=== PATIENT | female | born 1945 | race Caucasian/White ===

== ENCOUNTER 2018-07-10 00:12 | Inpatient (IN) | payer MEDICARE ==
[~2018-07-10] VITALS: Ht 157.5 cm; Wt 60.0 kg
[2018-07-10] VITALS (19 sets, daily range): BP systolic 75–141; BP diastolic 51–91
[~2018-07-10 00:12] MED LIST: ACET325T55 PO; BENZ1TAB7 PO; CALC3.7S3 NAS; DIGO125T PO; DOCU100C41 PO; DONE5TAB3 PO; ENOX40DI11 SUBCUT; FLUT16SP2 BOTHNARES; HYDR-4353 PO; IPRA3AMP9 IH; LEVO750T46 PO; MAGN400O6 PO; MAGN64TA10 PO; METF-436 PO; METH125V10 IV; MULT-38 PO; OMEP20CA10 PO; POTA-82 PO; SENN-162 PO; SERT100T10 PO; TEMA15CA PO; [UNRECOGNIZED DRUG - CODE] TOP
[2018-07-10 01:49] LABS: ALANINE AMINOTRANSFERASE 23 U/L (12-78); ALBUMIN 3.9 G/DL (3.4-5.0); ALBUMIN/GLOBULIN RATIO 1.1 (1.1-1.5); ALKALINE PHOSPHATASE 92 IU/L (46-116); ANION GAP 11 (8-16); ASPARTATE AMINO TRANSFERASE 23 U/L (10-37); BILIRUBIN,TOTAL 0.5 MG/DL (0.1-1.0); BLOOD UREA NITROGEN 20 MG/DL (7-18); BUN/CREATININE RATIO 33.3 (6.6-38.0); CALCIUM 9.6 MG/DL (8.5-10.1); CHLORIDE 98 MMOL/L (99-107); GLUCOSE 181 MG/DL (70-104); POTASSIUM 4.1 MMOL/L (3.5-5.1); SODIUM 138 MMOL/L (135-145); TOTAL CARBON DIOXIDE 29.3 MMOL/L (24-32); TOTAL PROTEIN 7.4 G/DL (6.4-8.2); eGFR > 90 ML/MIN
[2018-07-10 02:20] LABS: BASOPHILS % (AUTO) 0 % (0-1); EOSINOPHILS # (AUTO) 0.1 X10'3 (0-0.9); EOSINOPHILS % (AUTO) 0.9 % (0-6); HEMOGLOBIN 16.2 g/dl (12.0-16.0); LYMPHOCYTES # (AUTO) 0.3 X10'3 (1.1-4.8); LYMPHOCYTES % (AUTO) 6.2 % (21-51); MEAN CORPUSCULAR HEMOGLOBIN 31.9 PG (27.0-31.0); MEAN CORPUSCULAR HGB CONC 33.7 % (33.0-36.5); MEAN CORPUSCULAR VOLUME 94.6 FL (78-98); MEAN PLATELET VOLUME 7.9 FL (7.4-10.4); MONOCYTES # (AUTO) 0.2 X10'3 (0-0.9); MONOCYTES % (AUTO) 3.3 % (2-12); NEUTROPHILS % (AUTO) 89.6 % (42-75); PLATELET COUNT 134 X10'3 (140-440); RED BLOOD COUNT 5.08 X10'6 (4.20-5.60); RED CELL DISTRIBUTION WIDTH 14.8 % (11.5-14.5); WHITE BLOOD COUNT 5.6 X10'3 (4.5-11.0)
[2018-07-10 02:33] LABS: PROTHROMBIN TIME 10.3 SECONDS (9.0-12.0)
[2018-07-10] MEDS ORDERED: ondansetron/PF 4mg/2ml inj IV ONE (02:55)
[2018-07-10] MEDS ORDERED: morphine 2 MG/ML inj. syringe IV PRN (02:55)
[2018-07-10] MEDS: morphine 4 MG/ML inj SYRINge IV PRN ×2 (03:00→03:33)
[2018-07-10] MEDS ORDERED: iohexol 300mg/ml 100ml inj. ONE (03:02)
[2018-07-10 03:09] LABS: LIPASE 205 U/L (73-393); MAGNESIUM 1.5 MG/DL (1.5-2.4)
--- NOTE | 2018-07-10 04:08 | NUR ---
No bleed in colostomy bag noted prior to ED MD exam. Upon inspection of bag, the primary nurse and Doctor Dakota visualized GI bleed being excreted from the ostomy. Dr. Duncan ordered a type and screen and consulted with the hospitalist
[2018-07-10] MEDS ORDERED: morphine 4 MG/ML inj SYRINge IV PRN (04:10)
[2018-07-10] MEDS ORDERED: acetaminophen 650mg rectal suppository RC PRN (04:10)
[2018-07-10] MEDS ORDERED: diphenhydrAMINE 50 mg/ml inj IV PRN (04:10)
[2018-07-10] MEDS ORDERED: HYDROmorphone 1 mg/ml syringe IV PRN (04:10)
[2018-07-10] MEDS ORDERED: magnesium hydroxide 30ml (MOM) UD suspension PO PRN (04:10)
[2018-07-10] MEDS ORDERED: bisacodyl 10mg suppository rectal RC PRN (04:10)
[2018-07-10] MEDS ORDERED: mag hydrox/Alum hydrox/simeth 30ml oral suspension PO PRN (04:10)
[2018-07-10] MEDS ORDERED: acetaminophen 325mg tablet PO PRN ×2 (04:10)
[2018-07-10] MEDS ORDERED: diphenhydrAMINE 25mg capsule PO PRN (04:10)
[2018-07-10] MEDS ORDERED: ondansetron/PF 4mg/2ml inj IV PRN ×2 (04:10→06:35)
[2018-07-10] MEDS ORDERED: MESSAGE TO PHARMACY PO ONE (04:15)
[2018-07-10] MEDS ORDERED: insulin Lispro (HumaLOG) vial - multi-dose SQ SCH (04:15)
[2018-07-10] MEDS ORDERED: dextrose 50%-water 50ml dispensing syringe IV PRN (04:15)
[2018-07-10] MEDS ORDERED: dextrose ORAL solution 15 GM/59 ML bottle PO PRN ×2 (04:15)
[2018-07-10] MEDS ORDERED: glucagon, human recombinant 1mg kit SUBCUT PRN (04:15)
[2018-07-10 04:38] LABS: PHOSPHORUS 3.1 MG/DL (2.3-4.5); TROPONIN I < 0.04 NG/ML (0.0-0.05)
[2018-07-10 04:44] LABS: HEMOGLOBIN A1C 5.8 % (4.5-6.2)
[2018-07-10] MEDS ORDERED: piperacillin/tazo 3.375gm/50ml 50 ML IV ONE (04:50)
--- NOTE | 2018-07-10 05:00 | NUR ---
ADMITTED FROM ER BROUGHT VIA GURNEY TRANSFERRED TO BED. PT VERY SOB ON MASK, PAINFULL NAUSEATED,. ORIENTEDF TO ROOM AND ROUTINE. RT OSKAR, Addendum: 07/10/18 at 0609 by Alexander Blum RN Amended: Links added.
[2018-07-10 05:30] LABS: ABG BASE EXCESS 4.2 mmol/L (-2.0-3.0); ABG HCO3 30.9 mmol/L (22.0-26.0); ABG OXYGEN SATURATION 91.2 % (95-98); ABG PCO2 (T) 52.8 mmHg (32.0-45.0); ABG PH (T) 7.385 (7.350-7.450); ABG PO2 (T) 60.2 mmHg (83-108); ALLEN'S TEST Positive; FCOHb 1.2 % (0.5-1.5); FLOW 15 L/min; FMetHb 0.3 % (0.3-1.12); FO2Hb 89.8 % (94-100); PATIENT TEMPERATURE 36.9; TOTAL HEMOGLOBIN 17.8 G/dl (12.0-16.0)
[2018-07-10] MEDS: normal saline 1000ml 1,000 ML IV SCH ×2 (05:33→14:41)
--- NOTE | 2018-07-10 06:25 | NUR ---
Problems reprioritized. Patient report given, questions answered & plan of care reviewed with CITLALI MOBLEY. Addendum: 07/10/18 at 0706 by Alexander Blum RN Amended: Links added.
[2018-07-10] MEDS ORDERED: ringers solution, lacted 1,000 ML IV SCH (06:35)
--- NOTE | 2018-07-10 06:40 | NUR ---
Patient in room [facility]. I have received report from Elise GODWIN and had the opportunity to ask questions and assume patient care.
[2018-07-10] MEDS ORDERED: LIDOcaine 1% 30ml preserv. free vial ONE (06:56)
[2018-07-10] MEDS ORDERED: BUPIVAcaine/PF 2.5mg/ml (0.25%) 10ml vial ONE (06:56)
[2018-07-10] MEDS ORDERED: LIDOcaine 1% (10mg/ml) 2ml vial ONE (06:57)
--- NOTE | 2018-07-10 07:18 | NUR ---
Dr Ogden in to see patient at bedside. Patient will be going to OR STAT. Son, Mack, reached on phone and talked with Dr. Ogden, going forward with surgery. Patient report given to OR Charlene GODWIN, patient is now off the floor to OR. Rings are taped x2 on right hand, unable to remove. All belongings taken to OR with patient.
[2018-07-10] MEDS ORDERED: sevoflurane 250ml liquid IH ONE ×3 (07:25→13:08)
[2018-07-10] MEDS ORDERED: MIDAZolam 5mg/5ml vial ONE (07:32)
[2018-07-10] MEDS ORDERED: fentaNYL /PF 50mcg/ml 5ml ampule ONE (07:33)
[2018-07-10] MEDS ORDERED: etomidate 2mg/ml inj. ONE (07:35)
[2018-07-10] MEDS ORDERED: rocuronium 10mg/ml inj IV ONE (07:35)
[2018-07-10] MEDS: docusate sod 100mg capsule PO SCH ×2 (08:00→20:00)
[2018-07-10] MEDS ORDERED: phenylephrine 10mg/ml inj. ONE (08:34)
--- NOTE | 2018-07-10 09:50 | NUR ---
Pt arrived from OR.
--- NOTE | 2018-07-10 09:50 | NUR ---
Received from OR via , accompanied by HANNAH HUDSON, Anesthesiologist and report given by Anesthesiolgist. S/P EXP. LAP,BOWEL RESECTION PER DR. PONCE. PT. ARRIVES TO CICU 2014. INTUBATED, VENTILATOR, RT. PRESENT. PT. REMAINS SEDATED. ABD. WOUND VAC IN PLACE, GOOD SEAL, SERO SANG DRANINAGE PRESENT. COLOSTOMY STOMAL LT. ABD, BAG IN PLACE, NO DRAINAGE. PADILLA TO GRAVITY W/ CL. URINE PRESENT. RT. AC IV PATENT. LT. NECK CVP IN PLACE. RT. RADIAL ART. LINE PATERN W/ GOOD WAVE FORM.
[2018-07-10 10:05] LABS: ABG BASE EXCESS -5.3 mmol/L (-2.0-3.0); ABG HCO3 24.4 mmol/L (22.0-26.0); ABG OXYGEN SATURATION 90.7 % (95-98); ABG PCO2 (T) 64.9 mmHg (32.0-45.0); ABG PH (T) 7.193 (7.350-7.450); ABG PO2 (T) 69.3 mmHg (83-108); FCOHb 0.5 % (0.5-1.5); FMetHb 0.3 % (0.3-1.12); MINUTE VOLUME 14 L/min; PEEP 5 cm H2O; RESPIRATORY RATE 10 b/min; RESPIRATORY RATE (OBSERVED) 31 b/min; TIDAL VOLUME 500 mL; TOTAL HEMOGLOBIN 16.6 G/dl (12.0-16.0)
[2018-07-10] MEDS: FENTANYL-0.9 % NACL/PF 100 ML IV PRN ×4 (10:17→22:58)
--- NOTE | 2018-07-10 10:25 | NUR ---
Report called to receiving nurse, CITLALI MALIK . Transferred via Belongings W/ PT. . Special Issues communicated to receiving nurse.PT. REMAINS SEDATED (FENTANYL GTT PER ORDER). ON VENTILATOR AT ORIGINAL SETTINGS. ABD. WOUND VAC IN PLACE W/ GOOD SEAL PRESENT. LT. ABD. STOMA TO BAG, NO DRAINAGE. PADILLA TO GRAVITY W/ YELLOW URINE. RT. AC IV PATENT. LT. NECK CVP INTACT. LT. RADIAL ART LINE INTACT. SALEM SUMP TO LOW SUCTION W/ SM. AMT. DARK BROWN FLUID PRESENT.
[2018-07-10] MEDS ORDERED: albumin (human) 25% 100ml IV 100 ML IV ONE (11:40)
[2018-07-10] MEDS: dexmedetomidin/NS 400mcg/100ml 100 ML IV SCH (12:14)
[2018-07-10 13:00] LABS: ABG BASE EXCESS 0.7 mmol/L (-2.0-3.0); ABG HCO3 27.2 mmol/L (22.0-26.0); ABG OXYGEN SATURATION 96.8 % (95-98); ABG PCO2 (T) 50.8 mmHg (32.0-45.0); ABG PH (T) 7.347 (7.350-7.450); ABG PO2 (T) 90.2 mmHg (83-108); FMetHb 0.2 % (0.3-1.12); FO2Hb 95.6 % (94-100); MINUTE VOLUME 11 L/min; PEEP 5 cm H2O; RESPIRATORY RATE 14 b/min; RESPIRATORY RATE (OBSERVED) 25 b/min; TIDAL VOLUME 500 mL; TOTAL HEMOGLOBIN 15.5 G/dl (12.0-16.0)
[2018-07-10] MEDS ORDERED: normal saline 500ml IV soln 1,000 ML IV ONE (13:05)
[2018-07-10] MEDS: methylPREDNISolone sod succ 125mg/2ml vial IV SCH ×2 (13:47→20:33)
[2018-07-10] MEDS: levoFLOXACIN-Levaquin 250mg/D5 50 ML IV SCH (13:47)
[2018-07-10] MEDS: pantoprazole 40 MG vial IV SCH ×2 (13:47→20:33)
[2018-07-10] MEDS: NORepinephrine 8mg/ 250ml NS 250 ML IV SCH ×2 (13:48→21:24)
[2018-07-10] MEDS: piperacillin-tazo 2.25gm/50ml 50 ML IV SCH (14:41)
[2018-07-10] MEDS: ipratropium/albuterol 3ml nebule NEB SCH ×2 (15:05→20:51)
[2018-07-10 17:00] LABS: OXYGEN SATURATION (MIXED VEN) 74.2 % (60-80); PO2 MIXED VENOUS (TEMP COR) 37.4 mmHg (35-46)
--- NOTE | 2018-07-10 17:56 | NUR ---
Two rings removed from pt's right hand and sent home with pt's son Mack Yates
--- NOTE | 2018-07-10 18:25 | NUR ---
Problems reprioritized. Patient report given, questions answered & plan of care reviewed.
--- NOTE | 2018-07-10 18:30 | NUR ---
Patient in room CICU 2014. I have received report from Andrea GODWIN and had the opportunity to ask questions and assume patient care.
[2018-07-10] MEDS: heparin, porcine 5000 units/ml vial SQ SCH (20:00)
--- NOTE | 2018-07-10 20:15 | NUR ---
pt is extremely agitated pulling at restraints, the slightest touch completely agitates her, patient is grimacing in pain and fighting the vent, patient is on 150mcg fentanyl gtt and Precedex at max 0.7mcg, tt Shana, about further orders to make the patient more comfortable, stated to go up to 200mcg on fentanyl and titrate levo to maintain map, and add versed for sedation. will enter verbal orders, vital signs stable will continue to monitor
[2018-07-10] MEDS: vancomycin/NS 1 GM ADD-VANTAGE 250 ML IV SCH (20:34)
--- NOTE | 2018-07-10 20:45 | NUR ---
patient resting more comfortably, still easily agitated and painful with any touch or movement. will continue to titrate meds as ordered to make patient comfortable
[2018-07-10] MEDS: midazolam 100mg in NS 100ml 100 ML IV PRN (20:53)
[2018-07-10] MEDS ORDERED: temazepam 15mg capsule PO PRN (21:00)
[2018-07-11] VITALS (24 sets, daily range): BP systolic 90–141; BP diastolic 51–70
[2018-07-11] MEDS: piperacillin-tazo 2.25gm/50ml 50 ML IV SCH ×3 (00:44→16:41)
[2018-07-11] MEDS: dexmedetomidin/NS 400mcg/100ml 100 ML IV SCH ×2 (00:44→14:13)
[2018-07-11 03:00] LABS: BASOPHILS % (AUTO) 0 % (0-1); EOSINOPHILS % (AUTO) 0 % (0-6); HEMOGLOBIN 13.3 g/dl (12.0-16.0); LYMPHOCYTES # (AUTO) 0.8 X10'3 (1.1-4.8); LYMPHOCYTES % (AUTO) 5.7 % (21-51); MEAN CORPUSCULAR HEMOGLOBIN 31.5 PG (27.0-31.0); MEAN CORPUSCULAR HGB CONC 33.2 % (33.0-36.5); MEAN CORPUSCULAR VOLUME 94.9 FL (78-98); MEAN PLATELET VOLUME 8.5 FL (7.4-10.4); MONOCYTES # (AUTO) 1.2 X10'3 (0-0.9); MONOCYTES % (AUTO) 8.5 % (2-12); NEUTROPHILS # (AUTO) 11.7 X10'3 (1.8-7.7); NEUTROPHILS % (AUTO) 85.8 % (42-75); PLATELET COUNT 137 X10'3 (140-440); RED BLOOD COUNT 4.22 X10'6 (4.20-5.60); RED CELL DISTRIBUTION WIDTH 14.9 % (11.5-14.5); WHITE BLOOD COUNT 13.6 X10'3 (4.5-11.0)
[2018-07-11] MEDS: ipratropium/albuterol 3ml nebule NEB SCH ×4 (03:26→21:16)
[2018-07-11] MEDS: normal saline 1000ml 1,000 ML IV SCH ×3 (03:29→20:09)
[2018-07-11 03:40] LABS: ABG BASE EXCESS -2.4 mmol/L (-2.0-3.0); ABG HCO3 21.9 mmol/L (22.0-26.0); ABG OXYGEN SATURATION 97.5 % (95-98); ABG PCO2 (T) 36.5 mmHg (32.0-45.0); ABG PH (T) 7.396 (7.350-7.450); ABG PO2 (T) 94.9 mmHg (83-108); FCOHb 0.4 % (0.5-1.5); FMetHb 0.2 % (0.3-1.12); FO2Hb 96.9 % (94-100); MINUTE VOLUME 9 L/min; PEEP 5 cm H2O; RESPIRATORY RATE 14 b/min; RESPIRATORY RATE (OBSERVED) 18 b/min; TIDAL VOLUME 500 mL; TOTAL HEMOGLOBIN 13.3 G/dl (12.0-16.0)
[2018-07-11 03:45] LABS: ALANINE AMINOTRANSFERASE 19 U/L (12-78); ALBUMIN 2.7 G/DL (3.4-5.0); ALKALINE PHOSPHATASE 35 IU/L (46-116); ANION GAP 10 (8-16); ASPARTATE AMINO TRANSFERASE 24 U/L (10-37); BILIRUBIN,TOTAL 0.8 MG/DL (0.1-1.0); BLOOD UREA NITROGEN 24 MG/DL (7-18); BUN/CREATININE RATIO 30.8 (6.6-38.0); CALCIUM 7.6 MG/DL (8.5-10.1); CHLORIDE 106 MMOL/L (99-107); CREATININE 0.78 MG/DL (0.40-0.90); GLUCOSE 155 MG/DL (70-104); POTASSIUM 3.8 MMOL/L (3.5-5.1); SODIUM 141 MMOL/L (135-145); TOTAL CARBON DIOXIDE 25.1 MMOL/L (24-32); TOTAL PROTEIN 5.4 G/DL (6.4-8.2); eGFR 72 ML/MIN
[2018-07-11] MEDS: NORepinephrine 8mg/ 250ml NS 250 ML IV SCH (05:47)
--- NOTE | 2018-07-11 06:16 | NUR ---
Problems reprioritized. Patient report given, Andrea GODWIN questions answered & plan of care reviewed with .
[2018-07-11] MEDS: FENTANYL-0.9 % NACL/PF 100 ML IV PRN ×3 (07:04→21:35)
[2018-07-11] MEDS: pantoprazole 40 MG vial IV SCH ×2 (07:10→20:00)
[2018-07-11] MEDS: methylPREDNISolone sod succ 125mg/2ml vial IV SCH (07:10)
[2018-07-11] MEDS: docusate sod 100mg capsule PO SCH ×2 (07:11→20:00)
[2018-07-11] MEDS: heparin, porcine 5000 units/ml vial SQ SCH ×2 (07:11→20:00)
[2018-07-11] MEDS: levoFLOXACIN-Levaquin 250mg/D5 50 ML IV SCH (07:47)
[2018-07-11] MEDS: vancomycin/NS 1 GM ADD-VANTAGE 250 ML IV SCH (08:37)
[2018-07-11] MEDS: fluconazole-Diflucan 200mg/NS 100 ML IV SCH (10:45)
--- NOTE | 2018-07-11 12:03 | NUR ---
Called pt's spouse, son, and rest of individuals on contact list in attempt to obtain consent for Lumbar Puncture. Was unable to reach anyone on contact list and voice mailboxes were full or not set up for messages.
--- NOTE | 2018-07-11 12:21 | NUR ---
Spoke with Clinical Microbiologist, she stated that she would be unable to culture fluid from wound vac container due to contamination issues. Culture will have to be collected directly from wound when wound vac broken down.
[2018-07-11] MEDS: methylnaltrexone br 12mg/0.6ml inj***SubQ only SQ SCH (13:15)
[2018-07-11] MEDS: midazolam 100mg in NS 100ml 100 ML IV PRN (13:19)
--- NOTE | 2018-07-11 13:27 | NUR ---
Initial: Pt admitted with SBO. Pt intubated and bowel resection was attempted with findings of perforated small bowel due to a strangulated, parastomal hernia and abdomen was left open per MD notes. Pt remains intubated and in surgery for resection and wound VAC placement to abdomen. If prolonged intubation and working gut, recommend continuous TF of Vital high protein with goal rate of 50 mL/hr to meet 100% of patient's estimated nutrient needs. Will continue to follow. Recommendations: 1) If prolonged intubation recommend continuous TF of Vital high protein with goal rate of 50 mL/hr 2) If above daily wt and prealbumin q / 3) Diet advancement to heart healthy as medically indicated Addendum: 07/11/18 at [address] Amended: Links added.
--- NOTE | 2018-07-11 14:22 | NUR ---
Spoke to Dr. Adams regarding wound fluid culture and requested to hold Realistor until after pt is closed.Received order to hold Realistor.
--- NOTE | 2018-07-11 18:23 | NUR ---
Problems reprioritized. Patient report given, questions answered & plan of care reviewed with . CITLALI Leon
--- NOTE | 2018-07-11 18:30 | NUR ---
Patient in room CICU 2014. I have received report from Andrea GODWIN and had the opportunity to ask questions and assume patient care.
[2018-07-11] MEDS ORDERED: hydrocortisone sod succ/PF 100mg/2ml inj. IV SCH (20:00)
[2018-07-11] MEDS: lactobacillus rhamnosus 10,000 MMU CELLS/CAPSULE PO SCH (20:00)
[2018-07-11] MEDS: vancomycin inj. 750 MG in normal saline 250ml IV soln 250 ML IV SCH (20:00)
[2018-07-12] VITALS (24 sets, daily range): BP systolic 80–154; BP diastolic 40–83
[2018-07-12] MEDS: hydrocortisone sod succ/PF 100mg/2ml inj. IV SCH ×4 (00:22→23:52)
[2018-07-12] MEDS: piperacillin-tazo 2.25gm/50ml 50 ML IV SCH ×3 (00:22→17:41)
[2018-07-12] MEDS: dexmedetomidin/NS 400mcg/100ml 100 ML IV SCH ×2 (01:14→16:23)
[2018-07-12] MEDS: midazolam 100mg in NS 100ml 100 ML IV PRN ×3 (01:15→21:59)
[2018-07-12] MEDS ORDERED: mineral oil/petrolatum ophthal oint EACHEYE PRN (02:00)
[2018-07-12] MEDS: NORepinephrine 8mg/ 250ml NS 250 ML IV SCH (02:59)
[2018-07-12] MEDS: ipratropium/albuterol 3ml nebule NEB SCH ×4 (03:15→21:15)
[2018-07-12 04:39] LABS: BASOPHILS % (AUTO) 0 % (0-1); EOSINOPHILS % (AUTO) 0.2 % (0-6); HEMATOCRIT 32.3 % (35.0-45.0); HEMOGLOBIN 10.8 g/dl (12.0-16.0); LYMPHOCYTES # (AUTO) 0.2 X10'3 (1.1-4.8); LYMPHOCYTES % (AUTO) 4.9 % (21-51); MEAN CORPUSCULAR HEMOGLOBIN 31.4 PG (27.0-31.0); MEAN CORPUSCULAR HGB CONC 33.3 % (33.0-36.5); MEAN CORPUSCULAR VOLUME 94.1 FL (78-98); MEAN PLATELET VOLUME 8.1 FL (7.4-10.4); MONOCYTES # (AUTO) 0.3 X10'3 (0-0.9); MONOCYTES % (AUTO) 5.6 % (2-12); NEUTROPHILS # (AUTO) 4.5 X10'3 (1.8-7.7); NEUTROPHILS % (AUTO) 89.3 % (42-75); PLATELET COUNT 90 X10'3 (140-440); RED BLOOD COUNT 3.43 X10'6 (4.20-5.60); RED CELL DISTRIBUTION WIDTH 15.4 % (11.5-14.5); WHITE BLOOD COUNT 5.1 X10'3 (4.5-11.0)
[2018-07-12] MEDS: FENTANYL-0.9 % NACL/PF 100 ML IV PRN ×3 (04:40→18:39)
[2018-07-12 04:46] LABS: ABG HCO3 22.8 mmol/L (22.0-26.0); ABG OXYGEN SATURATION 96.9 % (95-98); ABG PCO2 (T) 33.3 mmHg (32.0-45.0); ABG PH (T) 7.449 (7.350-7.450); ABG PO2 (T) 84.5 mmHg (83-108); FCOHb 0.3 % (0.5-1.5); FMetHb 0.2 % (0.3-1.12); FO2Hb 96.4 % (94-100); MINUTE VOLUME 10 L/min; PEEP 5 cm H2O; RESPIRATORY RATE 14 b/min; RESPIRATORY RATE (OBSERVED) 18 b/min; TIDAL VOLUME 500 mL; TOTAL HEMOGLOBIN 11.8 G/dl (12.0-16.0)
[2018-07-12 05:07] LABS: ALANINE AMINOTRANSFERASE 17 U/L (12-78); ALBUMIN/GLOBULIN RATIO 0.7 (1.1-1.5); ALKALINE PHOSPHATASE 42 IU/L (46-116); ANION GAP 11 (8-16); ASPARTATE AMINO TRANSFERASE 16 U/L (10-37); BILIRUBIN,TOTAL 0.6 MG/DL (0.1-1.0); BLOOD UREA NITROGEN 20 MG/DL (7-18); BUN/CREATININE RATIO 31.3 (6.6-38.0); CALCIUM 7.3 MG/DL (8.5-10.1); CHLORIDE 109 MMOL/L (99-107); CREATININE 0.64 MG/DL (0.40-0.90); GLUCOSE 174 MG/DL (70-104); POTASSIUM 3.4 MMOL/L (3.5-5.1); SODIUM 141 MMOL/L (135-145); TOTAL CARBON DIOXIDE 21.3 MMOL/L (24-32); eGFR 90 ML/MIN
--- NOTE | 2018-07-12 06:15 | NUR ---
Patient in room CICU 2014. I have received report from CITLALI Leon and had the opportunity to ask questions and assume patient care.
--- NOTE | 2018-07-12 06:18 | NUR ---
Problems reprioritized. Patient report given,Evaristo RN questions answered & plan of care reviewed with .
[2018-07-12] MEDS: normal saline 1000ml 1,000 ML IV SCH (06:26)
[2018-07-12] MEDS: docusate sod 100mg capsule PO SCH ×2 (06:51→19:57)
[2018-07-12] MEDS: lactobacillus rhamnosus 10,000 MMU CELLS/CAPSULE PO SCH ×2 (06:51→19:58)
[2018-07-12] MEDS: heparin, porcine 5000 units/ml vial SQ SCH ×2 (07:13→20:45)
[2018-07-12] MEDS: pantoprazole 40 MG vial IV SCH ×2 (07:13→20:45)
[2018-07-12] MEDS: fluconazole-Diflucan 200mg/NS 100 ML IV SCH (07:52)
[2018-07-12] MEDS: vancomycin inj. 750 MG in normal saline 250ml IV soln 250 ML IV SCH ×2 (08:49→20:45)
[2018-07-12] MEDS ORDERED: [UNRECOGNIZED DRUG - OTHER] IV ONE (12:00)
[2018-07-12] MEDS ORDERED: POTASSIUM CL IV ONE (12:00)
[2018-07-12] MEDS ORDERED: SODIUM BICARBONATE IV ONE (12:00)
[2018-07-12] MEDS ORDERED: rocuronium 10mg/ml inj IV ONE ×2 (12:48→14:06)
--- NOTE | 2018-07-12 13:00 | NUR ---
OR nurses at bedside. Pt transported to OR for surgery with Dr. Odgen.
[2018-07-12] MEDS ORDERED: sodium phosphate inj. 30 MMOL in dextrose 5%-water 250 ML IV PRN (13:20)
[2018-07-12] MEDS ORDERED: potassium Cl 20 mEq SR tablet PO PRN ×2 (13:20)
[2018-07-12] MEDS: fat emulsion IV 100 ML, MVI, adult No.4 with vit. K 10 ML, Trace element-5 inj. 1 ML in... IV SCH ×8 (13:20→17:59)
[2018-07-12] MEDS ORDERED: sodium phosphate inj. 15 MMOL in dextrose 5%-water 150 ML IV PRN (13:20)
[2018-07-12] MEDS ORDERED: magnesium 4gm in 100ml NS 100 ML IV PRN (13:20)
[2018-07-12] MEDS ORDERED: Neutra Phos packet PO PRN (13:20)
[2018-07-12] MEDS ORDERED: Dextrose 10%-water IV solution 1,000 ML IV PRN (13:20)
[2018-07-12] MEDS ORDERED: magnesium Cl slow-release 64mg tablet PO PRN (13:20)
[2018-07-12] MEDS: K, MAG and/or Phos replacement - Verify level? MC SCH (13:20)
[2018-07-12] MEDS ORDERED: potassium Cl 40MEQ/250ML bag 250 ML IV PRN (13:20)
--- NOTE | 2018-07-12 14:30 | NUR ---
ONE BLACK SPONGE PLACED IN MIDLINE ABDOMINAL WOUND.
--- NOTE | 2018-07-12 15:41 | NUR ---
TPN consult: Patient with open abdomen, status post exploratory laparotomy with small bowel resection for strangulated parastomal hernia, to operating room today for washout and abdominal wall closure per MD notes. Per RN pt with central line. TPN recommendations below to meet 100% of patient's estimated nutrient needs, d/w pharmacy. Recommendations: 1) 3:1 Clinimix E 11/28 with 100 mL 20% intralipids 2L bag with goal rate of 70 mL/hr to provide: total volume of 1680 mL/day, 1456 kcal, 80 g protein, and 240 g dextrose. Dext load 3.21 gm/kg/min. 2) Prealbumin q 3) Daily wt Addendum: 07/12/18 at [address] Amended: Links added.
--- NOTE | 2018-07-12 18:00 | NUR ---
Problems reprioritized. Patient report given, questions answered & plan of care reviewed with CITLALI Leon.
[2018-07-13] VITALS (24 sets, daily range): BP systolic 88–109; BP diastolic 48–54
[2018-07-13] MEDS: FENTANYL-0.9 % NACL/PF 100 ML IV PRN ×4 (01:16→23:56)
[2018-07-13] MEDS: piperacillin-tazo 2.25gm/50ml 50 ML IV SCH ×3 (02:28→17:25)
[2018-07-13 03:16] LABS: HEMATOCRIT 31.4 % (35.0-45.0); HEMOGLOBIN 10.5 g/dl (12.0-16.0); MEAN CORPUSCULAR HEMOGLOBIN 31.7 PG (27.0-31.0); MEAN CORPUSCULAR HGB CONC 33.5 % (33.0-36.5); MEAN CORPUSCULAR VOLUME 94.8 FL (78-98); PLATELET COUNT 77 X10'3 (140-440); RED BLOOD COUNT 3.31 X10'6 (4.20-5.60); RED CELL DISTRIBUTION WIDTH 15.9 % (11.5-14.5); WHITE BLOOD COUNT 3.7 X10'3 (4.5-11.0)
[2018-07-13 03:21] LABS: ABG BASE EXCESS -2.6 mmol/L (-2.0-3.0); ABG HCO3 23.2 mmol/L (22.0-26.0); ABG OXYGEN SATURATION 92.2 % (95-98); ABG PCO2 (T) 41.1 mmHg (32.0-45.0); ABG PH (T) 7.361 (7.350-7.450); ABG PO2 (T) 59.3 mmHg (83-108); FCOHb 0.5 % (0.5-1.5); FMetHb 0.3 % (0.3-1.12); FO2Hb 91.5 % (94-100); MINUTE VOLUME 6 L/min; PATIENT TEMPERATURE 35.5; PEEP 5 cm H2O; RESPIRATORY RATE 12 b/min; RESPIRATORY RATE (OBSERVED) 12 b/min; TIDAL VOLUME 500 mL; TOTAL HEMOGLOBIN 11.5 G/dl (12.0-16.0)
[2018-07-13 03:27] LABS: ALANINE AMINOTRANSFERASE 14 U/L (12-78); ALBUMIN 1.7 G/DL (3.4-5.0); ALBUMIN/GLOBULIN RATIO 0.6 (1.1-1.5); ALKALINE PHOSPHATASE 38 IU/L (46-116); ANION GAP 8 (8-16); ASPARTATE AMINO TRANSFERASE 13 U/L (10-37); BILIRUBIN,TOTAL 0.5 MG/DL (0.1-1.0); BLOOD UREA NITROGEN 17 MG/DL (7-18); CALCIUM 6.9 MG/DL (8.5-10.1); CHLORIDE 113 MMOL/L (99-107); CREATININE 0.46 MG/DL (0.40-0.90); GLUCOSE 243 MG/DL (70-104); MAGNESIUM 1.6 MG/DL (1.5-2.4); PHOSPHORUS 1.9 MG/DL (2.3-4.5); PREALBUMIN 9.6 MG/DL (19-36); SODIUM 144 MMOL/L (135-145); TOTAL CARBON DIOXIDE 22.9 MMOL/L (24-32); TOTAL PROTEIN 4.4 G/DL (6.4-8.2); TRIGLYCERIDES 213 MG/DL (20-135); VANCOMYCIN,TROUGH 14.3 UG/ML (6.0-14.0); eGFR > 90 ML/MIN
[2018-07-13 03:30] LABS: POTASSIUM 2.8 MMOL/L (3.5-5.1)
[2018-07-13] MEDS: ipratropium/albuterol 3ml nebule NEB SCH ×4 (03:32→21:03)
--- NOTE | 2018-07-13 03:33 | NUR ---
received a critical value of potassim of 2.8, notifyed Praneeth will start potassium replacement
[2018-07-13 03:45] LABS: TOTAL CELLS COUNTED 100
[2018-07-13 03:46] LABS: ANISOCYTOSIS 1+; BURR CELLS 1+; PLATELET ESTIMATE DECREASED
[2018-07-13] MEDS: insulin regular, human vial - multi-dose SQ SCH ×3 (04:10→14:21)
[2018-07-13] MEDS: dexmedetomidin/NS 400mcg/100ml 100 ML IV SCH ×2 (04:30→16:14)
[2018-07-13] MEDS: potassium Cl 40MEQ/250ML bag 250 ML IV PRN ×2 (04:32→09:46)
--- NOTE | 2018-07-13 06:00 | NUR ---
Patient in room CICU 2014. I have received report from CITLALI Leon and had the opportunity to ask questions and assume patient care.
--- NOTE | 2018-07-13 06:20 | NUR ---
Problems reprioritized. Patient report given,Evaristo RN questions answered & plan of care reviewed with .
[2018-07-13] MEDS: docusate sod 100mg capsule PO SCH ×2 (06:46→20:00)
[2018-07-13] MEDS: methylnaltrexone br 12mg/0.6ml inj***SubQ only SQ SCH (06:47)
[2018-07-13] MEDS: lactobacillus rhamnosus 10,000 MMU CELLS/CAPSULE PO SCH ×2 (06:47→20:28)
[2018-07-13] MEDS: K, MAG and/or Phos replacement - Verify level? MC SCH (06:57)
[2018-07-13] MEDS ORDERED: potassium phosphate inj 15 MMOL in dextrose 5%-water 150 ML IV ONE (07:15)
[2018-07-13] MEDS: pantoprazole 40 MG vial IV SCH ×2 (07:17→20:27)
[2018-07-13] MEDS: hydrocortisone sod succ/PF 100mg/2ml inj. IV SCH ×3 (07:17→23:56)
[2018-07-13] MEDS: vancomycin inj. 750 MG in normal saline 250ml IV soln 250 ML IV SCH (07:19)
[2018-07-13] MEDS: mineral oil/petrolatum ophthal oint EACHEYE SCH ×3 (07:25→20:27)
[2018-07-13] MEDS: heparin, porcine 5000 units/ml vial SQ SCH ×2 (07:25→20:28)
[2018-07-13] MEDS ORDERED: VANCOMYCIN LEVEL IV ONE (07:30)
[2018-07-13] MEDS ORDERED: methylnaltrexone br 12mg/0.6ml inj***SubQ only SQ SCH (08:00)
[2018-07-13] MEDS: midazolam 100mg in NS 100ml 100 ML IV PRN (11:58)
--- NOTE | 2018-07-13 12:40 | NUR ---
MAURILIO d/w clinical pharmacist pt potentially entering refeeding syndrome w/ K 2.8 and Phos 1.9 today. E TPN to remain at 30ml/hr w/ electrolyte replacement until normalized prior to advancement to goal. Clinical pharmacist reports d/w RN. Will monitor for further signs of refeeding and TPN tolerance. Addendum: 07/13/18 at [address] Amended: Links added.
[2018-07-13] MEDS: fluconazole-Diflucan 200mg/NS 100 ML IV SCH (14:22)
--- NOTE | 2018-07-13 18:15 | NUR ---
Problems reprioritized. Patient report given, questions answered & plan of care reviewed with CITLALI Hamm .
[2018-07-13] MEDS ORDERED: Dextrose 10%-water IV solution 1,000 ML IV PRN (18:41)
[2018-07-13] MEDS ORDERED: fat emulsion IV 181.82 ML, MVI, adult No.4 with vit. K 4.55 ML, Trace element-5 inj. 0.... IV SCH ×4 (18:41)
[2018-07-13] MEDS ORDERED: magnesium 4gm in 100ml NS 100 ML IV PRN (18:45)
[2018-07-13] MEDS ORDERED: magnesium Cl slow-release 64mg tablet PO PRN (18:45)
[2018-07-13] MEDS: fat emulsion IV 100 ML, MVI, adult No.4 with vit. K 10 ML, Trace element-5 inj. 1 ML in... IV SCH ×4 (19:30)
[2018-07-13] MEDS: vancomycin/NS 1 GM ADD-VANTAGE 250 ML IV SCH (20:28)
[2018-07-13] MEDS: insulin glargine (Lantus) pen - multi-dose SQ SCH (22:30)
[2018-07-14] VITALS (24 sets, daily range): BP systolic 95–124; BP diastolic 45–71
[2018-07-14] MEDS: mineral oil/petrolatum ophthal oint EACHEYE SCH ×4 (02:11→20:47)
[2018-07-14] MEDS: piperacillin-tazo 2.25gm/50ml 50 ML IV SCH ×3 (02:11→18:08)
[2018-07-14] MEDS: insulin regular, human vial - multi-dose SQ SCH ×4 (02:20→21:00)
[2018-07-14] MEDS: dexmedetomidin/NS 400mcg/100ml 100 ML IV SCH (02:31)
[2018-07-14 02:57] LABS: BASOPHILS % (AUTO) 0.6 % (0-1); EOSINOPHILS % (AUTO) 0 % (0-6); HEMATOCRIT 32.6 % (35.0-45.0); HEMOGLOBIN 10.8 g/dl (12.0-16.0); LYMPHOCYTES # (AUTO) 0.2 X10'3 (1.1-4.8); LYMPHOCYTES % (AUTO) 3.2 % (21-51); MEAN CORPUSCULAR HEMOGLOBIN 31.7 PG (27.0-31.0); MEAN CORPUSCULAR HGB CONC 33.2 % (33.0-36.5); MEAN CORPUSCULAR VOLUME 95.4 FL (78-98); MEAN PLATELET VOLUME 8.6 FL (7.4-10.4); MONOCYTES # (AUTO) 0.3 X10'3 (0-0.9); MONOCYTES % (AUTO) 4.7 % (2-12); NEUTROPHILS # (AUTO) 5.9 X10'3 (1.8-7.7); NEUTROPHILS % (AUTO) 91.5 % (42-75); PLATELET COUNT 95 X10'3 (140-440); RED BLOOD COUNT 3.41 X10'6 (4.20-5.60); WHITE BLOOD COUNT 6.4 X10'3 (4.5-11.0)
[2018-07-14] MEDS: ipratropium/albuterol 3ml nebule NEB SCH ×4 (02:59→20:58)
--- NOTE | 2018-07-14 03:36 | NUR ---
1999..Assessment as noted, pt not responsive, versed off, Precedex decreased. Wound vac to abdomen with good seal, intact sponge and 125mmHg low continous suction.
--- NOTE | 2018-07-14 03:36 | NUR ---
1830..Patient in room CICU 2014. I have received report from Liyah GODWIN and had the opportunity to ask questions and assume patient care.
--- NOTE | 2018-07-14 03:38 | NUR ---
0000..No changes noted.
[2018-07-14 03:41] LABS: ABG BASE EXCESS -4.9 mmol/L (-2.0-3.0); ABG HCO3 19.8 mmol/L (22.0-26.0); ABG OXYGEN SATURATION 92.3 % (95-98); ABG PCO2 (T) 35.2 mmHg (32.0-45.0); ABG PH (T) 7.367 (7.350-7.450); ABG PO2 (T) 64.4 mmHg (83-108); ALLEN'S TEST Positive; FCOHb 0.3 % (0.5-1.5); FMetHb 0.3 % (0.3-1.12); FO2Hb 91.7 % (94-100); MINUTE VOLUME 8 L/min; PEEP 5 cm H2O; RESPIRATORY RATE 12 b/min; RESPIRATORY RATE (OBSERVED) 14 b/min; TIDAL VOLUME 500 mL; TOTAL HEMOGLOBIN 11.2 G/dl (12.0-16.0)
[2018-07-14 03:50] LABS: ALANINE AMINOTRANSFERASE 16 U/L (12-78); ALBUMIN 1.7 G/DL (3.4-5.0); ALBUMIN/GLOBULIN RATIO 0.5 (1.1-1.5); ALKALINE PHOSPHATASE 42 IU/L (46-116); ANION GAP 10 (8-16); ASPARTATE AMINO TRANSFERASE 16 U/L (10-37); BILIRUBIN,TOTAL 0.3 MG/DL (0.1-1.0); BLOOD UREA NITROGEN 24 MG/DL (7-18); CALCIUM 7.6 MG/DL (8.5-10.1); CHLORIDE 115 MMOL/L (99-107); GLUCOSE 228 MG/DL (70-104); MAGNESIUM 1.8 MG/DL (1.5-2.4); PHOSPHORUS 2.4 MG/DL (2.3-4.5); POTASSIUM 4.5 MMOL/L (3.5-5.1); SODIUM 145 MMOL/L (135-145); TOTAL CARBON DIOXIDE 20.3 MMOL/L (24-32); TOTAL PROTEIN 4.8 G/DL (6.4-8.2); eGFR > 90 ML/MIN
--- NOTE | 2018-07-14 04:17 | NUR ---
0400..No changes noted.
--- NOTE | 2018-07-14 06:17 | NUR ---
0615..Problems reprioritized. Patient report given, questions answered & plan of care reviewed with Liyah GODWIN.
[2018-07-14] MEDS: lactobacillus rhamnosus 10,000 MMU CELLS/CAPSULE PO SCH ×2 (06:56→20:48)
[2018-07-14] MEDS: docusate sod 100mg capsule PO SCH ×2 (06:56→20:00)
[2018-07-14] MEDS: K, MAG and/or Phos replacement - Verify level? MC SCH (06:56)
[2018-07-14] MEDS: pantoprazole 40 MG vial IV SCH ×2 (07:34→20:46)
[2018-07-14] MEDS: heparin, porcine 5000 units/ml vial SQ SCH ×2 (07:35→20:47)
[2018-07-14] MEDS: vancomycin/NS 1 GM ADD-VANTAGE 250 ML IV SCH ×2 (07:35→20:46)
[2018-07-14] MEDS: hydrocortisone sod succ/PF 100mg/2ml inj. IV SCH ×2 (07:35→15:38)
[2018-07-14] MEDS: FENTANYL-0.9 % NACL/PF 100 ML IV PRN ×2 (08:26→19:31)
[2018-07-14 08:36] LABS: MAGNESIUM 1.8 MG/DL (1.5-2.4); PHOSPHORUS 2.2 MG/DL (2.3-4.5); POTASSIUM 4.3 MMOL/L (3.5-5.1)
[2018-07-14] MEDS: NORepinephrine 8mg/ 250ml NS 250 ML IV SCH (10:10)
--- NOTE | 2018-07-14 10:11 | NUR ---
TF Consult: Pt s/p GJ placement w/ trickle feeds to start today per surgeon using Jejunostomy port. Recs below. Pt remains on TPN at 30ml/hr receiving electrolyte replacement w/ Phos 2.2 today while K/Mg WNL. Enteral feeds will add additional Phos. Will monitor for feeding tolerance. Recommendations: 1) Trickle J feeds per MD using Vital AF @ 10ml/hr goal; total volume not to exceed 100ml via J tube. Additional water flush 100ml Q4 via G-tube port 2) 3:1 Clinimix E 11/28 with 100 mL 20% intralipids 2L bag with goal rate of 70 mL/hr to provide: total volume of 1680 mL/day, 1456 kcal, 80 g protein, and 240 g dextrose. Dext load 3.21 gm/kg/min. 3) Prealbumin q /; Daily wt Addendum: 07/14/18 at [address] Amended: Links added.
[2018-07-14] MEDS: fat emulsion IV 100 ML, MVI, adult No.4 with vit. K 10 ML, Trace element-5 inj. 1 ML in... IV SCH ×4 (10:35)
[2018-07-14] MEDS: fluconazole-Diflucan 200mg/NS 100 ML IV SCH (15:34)
[2018-07-14 17:15] LABS: MAGNESIUM 1.8 MG/DL (1.5-2.4); PHOSPHORUS 2.2 MG/DL (2.3-4.5)
--- NOTE | 2018-07-14 18:15 | NUR ---
Problems reprioritized. Patient report given, questions answered & plan of care reviewed with CITLALI Hamm.
[2018-07-14] MEDS: insulin glargine (Lantus) pen - multi-dose SQ SCH (21:02)
[2018-07-15] VITALS (24 sets, daily range): BP systolic 98–147; BP diastolic 50–76
[2018-07-15] MEDS: hydrocortisone sod succ/PF 100mg/2ml inj. IV SCH ×3 (00:31→15:20)
--- NOTE | 2018-07-15 00:34 | NUR ---
1830..Patient in room CICU 2014. I have received report from Liyah GODWIN and had the opportunity to ask questions and assume patient care.
--- NOTE | 2018-07-15 00:35 | NUR ---
1999..Assessment as noted, pt more awake today, attempts to follow commands, sedation remains off.
--- NOTE | 2018-07-15 00:36 | NUR ---
0000..No changes noted.
[2018-07-15] MEDS: fat emulsion IV 100 ML, MVI, adult No.4 with vit. K 10 ML, Trace element-5 inj. 1 ML in... IV SCH ×8 (01:40→13:47)
[2018-07-15] MEDS: piperacillin-tazo 2.25gm/50ml 50 ML IV SCH ×3 (02:06→17:21)
[2018-07-15] MEDS: mineral oil/petrolatum ophthal oint EACHEYE SCH ×4 (02:07→20:58)
[2018-07-15] MEDS: insulin regular, human vial - multi-dose SQ SCH ×4 (02:15→21:13)
[2018-07-15] MEDS: ipratropium/albuterol 3ml nebule NEB SCH ×4 (02:28→20:37)
[2018-07-15] MEDS: FENTANYL-0.9 % NACL/PF 100 ML IV PRN ×4 (02:32→23:44)
[2018-07-15 02:50] LABS: BASOPHILS % (AUTO) 0.1 % (0-1); EOSINOPHILS % (AUTO) 0.2 % (0-6); HEMATOCRIT 32.3 % (35.0-45.0); HEMOGLOBIN 10.9 g/dl (12.0-16.0); LYMPHOCYTES # (AUTO) 0.3 X10'3 (1.1-4.8); LYMPHOCYTES % (AUTO) 3.3 % (21-51); MEAN CORPUSCULAR HEMOGLOBIN 32.4 PG (27.0-31.0); MEAN CORPUSCULAR HGB CONC 33.6 % (33.0-36.5); MEAN CORPUSCULAR VOLUME 96.4 FL (78-98); MEAN PLATELET VOLUME 8.2 FL (7.4-10.4); MONOCYTES # (AUTO) 0.3 X10'3 (0-0.9); MONOCYTES % (AUTO) 2.7 % (2-12); NEUTROPHILS # (AUTO) 8.9 X10'3 (1.8-7.7); NEUTROPHILS % (AUTO) 93.7 % (42-75); PLATELET COUNT 107 X10'3 (140-440); RED BLOOD COUNT 3.35 X10'6 (4.20-5.60); RED CELL DISTRIBUTION WIDTH 15.2 % (11.5-14.5); WHITE BLOOD COUNT 9.5 X10'3 (4.5-11.0)
[2018-07-15 03:11] LABS: ABG BASE EXCESS -1.5 mmol/L (-2.0-3.0); ABG HCO3 24.4 mmol/L (22.0-26.0); ABG OXYGEN SATURATION 92.9 % (95-98); ABG PCO2 (T) 46.5 mmHg (32.0-45.0); ABG PH (T) 7.339 (7.350-7.450); ABG PO2 (T) 67.3 mmHg (83-108); FCOHb 0.3 % (0.5-1.5); FMetHb 0.2 % (0.3-1.12); FO2Hb 92.4 % (94-100); MINUTE VOLUME 8 L/min; PATIENT TEMPERATURE 37.2; PEEP 5 cm H2O; RESPIRATORY RATE 12 b/min; RESPIRATORY RATE (OBSERVED) 16 b/min; TIDAL VOLUME 500 mL; TOTAL HEMOGLOBIN 11.8 G/dl (12.0-16.0)
[2018-07-15 03:57] LABS: ALANINE AMINOTRANSFERASE 24 U/L (12-78); ALBUMIN 1.7 G/DL (3.4-5.0); ALBUMIN/GLOBULIN RATIO 0.5 (1.1-1.5); ALKALINE PHOSPHATASE 69 IU/L (46-116); ANION GAP 8 (8-16); ASPARTATE AMINO TRANSFERASE 24 U/L (10-37); BILIRUBIN,TOTAL 0.3 MG/DL (0.1-1.0); BLOOD UREA NITROGEN 27 MG/DL (7-18); BUN/CREATININE RATIO 47.4 (6.6-38.0); CHLORIDE 113 MMOL/L (99-107); CREATININE 0.57 MG/DL (0.40-0.90); GLUCOSE 188 MG/DL (70-104); MAGNESIUM 1.8 MG/DL (1.5-2.4); PHOSPHORUS 2.5 MG/DL (2.3-4.5); POTASSIUM 4.1 MMOL/L (3.5-5.1); SODIUM 145 MMOL/L (135-145); TOTAL CARBON DIOXIDE 24.4 MMOL/L (24-32); TOTAL PROTEIN 4.8 G/DL (6.4-8.2); eGFR > 90 ML/MIN
[2018-07-15 04:07] LABS: PLATELET ESTIMATE DECREASED; TOTAL CELLS COUNTED 100; TOXIC GRANULATION 1+
--- NOTE | 2018-07-15 04:39 | NUR ---
0400..Tube feeding residual increasing, no other changes noted.
--- NOTE | 2018-07-15 06:13 | NUR ---
0615..Problems reprioritized. Patient report given, questions answered & plan of care reviewed with Liyah GODWIN.
[2018-07-15] MEDS: K, MAG and/or Phos replacement - Verify level? MC SCH (06:47)
[2018-07-15] MEDS: dexmedetomidin/NS 400mcg/100ml 100 ML IV SCH (06:55)
[2018-07-15] MEDS: methylnaltrexone br 12mg/0.6ml inj***SubQ only SQ SCH (06:56)
[2018-07-15] MEDS: docusate sod 100mg capsule PO SCH ×2 (06:56→21:02)
[2018-07-15] MEDS ORDERED: VANCOMYCIN LEVEL IV ONE (07:30)
[2018-07-15] MEDS: pantoprazole 40 MG vial IV SCH ×2 (07:32→20:59)
[2018-07-15] MEDS: heparin, porcine 5000 units/ml vial SQ SCH ×2 (07:32→20:56)
[2018-07-15] MEDS: vancomycin/NS 1 GM ADD-VANTAGE 250 ML IV SCH ×2 (07:33→21:01)
[2018-07-15] MEDS: lactobacillus rhamnosus 10,000 MMU CELLS/CAPSULE PO SCH ×2 (07:33→21:02)
[2018-07-15] MEDS: fluconazole-Diflucan 200mg/NS 100 ML IV SCH (15:20)
--- NOTE | 2018-07-15 18:00 | NUR ---
Problems reprioritized. Patient report given, questions answered & plan of care reviewed with CITLALI Sanford.
--- NOTE | 2018-07-15 18:40 | NUR ---
Received patient report from Evaristo GODWIN.
--- NOTE | 2018-07-15 20:10 | NUR ---
Per dayshift CITLALI Pelletier, Dr. Millan stated in rounds to "keep tube feeding at trickle, 20ml/hr and do not advance". No orders noted but tube feed remains at 20ml/hr. No bowel sounds to auscultation at this time.
[2018-07-15] MEDS: insulin glargine (Lantus) pen - multi-dose SQ SCH (21:14)
[2018-07-16] VITALS (24 sets, daily range): BP systolic 120–164; BP diastolic 54–79
[2018-07-16] MEDS: hydrocortisone sod succ/PF 100mg/2ml inj. IV SCH ×3 (00:31→15:10)
[2018-07-16] MEDS: mineral oil/petrolatum ophthal oint EACHEYE SCH ×4 (02:24→20:07)
[2018-07-16] MEDS: piperacillin-tazo 2.25gm/50ml 50 ML IV SCH (02:24)
[2018-07-16] MEDS: ipratropium/albuterol 3ml nebule NEB SCH ×4 (02:45→21:05)
[2018-07-16 03:00] LABS: ABG BASE EXCESS -0.6 mmol/L (-2.0-3.0); ABG HCO3 25.6 mmol/L (22.0-26.0); ABG OXYGEN SATURATION 97.4 % (95-98); ABG PCO2 (T) 49.3 mmHg (32.0-45.0); ABG PH (T) 7.334 (7.350-7.450); ABG PO2 (T) 103.1 mmHg (83-108); FCOHb 0.3 % (0.5-1.5); FMetHb 0.3 % (0.3-1.12); FO2Hb 96.8 % (94-100); MINUTE VOLUME 7 L/min; PEEP 5 cm H2O; RESPIRATORY RATE 12 b/min; RESPIRATORY RATE (OBSERVED) 12 b/min; TIDAL VOLUME 500 mL; TOTAL HEMOGLOBIN 11.8 G/dl (12.0-16.0)
[2018-07-16] MEDS: insulin regular, human vial - multi-dose SQ SCH ×4 (03:03→20:27)
[2018-07-16 03:22] LABS: HEMATOCRIT 33.3 % (35.0-45.0); MEAN CORPUSCULAR HEMOGLOBIN 31.9 PG (27.0-31.0); MEAN CORPUSCULAR VOLUME 96.5 FL (78-98); RED BLOOD COUNT 3.46 X10'6 (4.20-5.60); WHITE BLOOD COUNT 8.4 X10'3 (4.5-11.0)
[2018-07-16 03:23] LABS: BASOPHILS % (AUTO) 0.4 % (0-1); EOSINOPHILS % (AUTO) 0 % (0-6); LYMPHOCYTES # (AUTO) 0.4 X10'3 (1.1-4.8); LYMPHOCYTES % (AUTO) 4.8 % (21-51); MEAN PLATELET VOLUME 8.5 FL (7.4-10.4); MONOCYTES # (AUTO) 0.4 X10'3 (0-0.9); MONOCYTES % (AUTO) 4.7 % (2-12); NEUTROPHILS # (AUTO) 7.6 X10'3 (1.8-7.7); NEUTROPHILS % (AUTO) 90.1 % (42-75); PLATELET COUNT 114 X10'3 (140-440)
[2018-07-16 03:54] LABS: PLATELET ESTIMATE DECREASED; TOTAL CELLS COUNTED 100; TOXIC GRANULATION 1+
[2018-07-16 04:08] LABS: ALANINE AMINOTRANSFERASE 89 U/L (12-78); ALBUMIN 1.8 G/DL (3.4-5.0); ALBUMIN/GLOBULIN RATIO 0.6 (1.1-1.5); ALKALINE PHOSPHATASE 86 IU/L (46-116); ANION GAP 7 (8-16); ASPARTATE AMINO TRANSFERASE 53 U/L (10-37); BILIRUBIN,TOTAL 0.4 MG/DL (0.1-1.0); BLOOD UREA NITROGEN 28 MG/DL (7-18); BUN/CREATININE RATIO 52.8 (6.6-38.0); CALCIUM 8.2 MG/DL (8.5-10.1); CHLORIDE 110 MMOL/L (99-107); CREATININE 0.53 MG/DL (0.40-0.90); GLUCOSE 222 MG/DL (70-104); MAGNESIUM 1.8 MG/DL (1.5-2.4); PHOSPHORUS 3.3 MG/DL (2.3-4.5); POTASSIUM 3.6 MMOL/L (3.5-5.1); PREALBUMIN 19.3 MG/DL (19-36); SODIUM 143 MMOL/L (135-145); TOTAL PROTEIN 4.9 G/DL (6.4-8.2); TRIGLYCERIDES 112 MG/DL (20-135); eGFR > 90 ML/MIN
[2018-07-16] MEDS: FENTANYL-0.9 % NACL/PF 100 ML IV PRN ×3 (05:12→18:10)
--- NOTE | 2018-07-16 06:19 | NUR ---
Pt report given to Chavez GODWIN
--- NOTE | 2018-07-16 06:43 | NUR ---
Patient in room CICU 2015. I have received report from Claribel and had the opportunity to ask questions and assume patient care.
[2018-07-16] MEDS: K, MAG and/or Phos replacement - Verify level? MC SCH (07:28)
[2018-07-16] MEDS: docusate sod 100mg capsule PO SCH ×2 (07:29→20:08)
[2018-07-16] MEDS: pantoprazole 40 MG vial IV SCH ×2 (07:59→20:07)
[2018-07-16] MEDS: vancomycin/NS 1 GM ADD-VANTAGE 250 ML IV SCH (07:59)
[2018-07-16] MEDS: lactobacillus rhamnosus 10,000 MMU CELLS/CAPSULE PO SCH ×2 (07:59→20:08)
[2018-07-16] MEDS: heparin, porcine 5000 units/ml vial SQ SCH ×2 (08:00→20:12)
[2018-07-16] MEDS: fluconazole/NS 400mg/200ml bag 200 ML IV SCH (10:48)
[2018-07-16] MEDS: dexmedetomidin/NS 400mcg/100ml 100 ML IV SCH (11:03)
[2018-07-16] MEDS: piperacillin/tazo 3.375gm/50ml 50 ML IV SCH ×2 (13:13→20:07)
[2018-07-16] MEDS: fat emulsion IV 100 ML, MVI, adult No.4 with vit. K 10 ML, Trace element-5 inj. 1 ML in... IV SCH ×4 (13:21)
--- NOTE | 2018-07-16 17:02 | NUR ---
reassessment: Per exercise science internship; to change to nocturnal TPN starting PM 1/. Pt tolerating trickle Vital AF feeds advanced to 20ml/hr per surgeon w/ no residuals. Still no colostomy output but relistor and colace not given r/t "not needed/NPO." MAURILIO d/w RN to start per MD approval in order to further stimulate GI. New nocturnal recs below taking into consideration current enteral nutrition. Unable to meet pt protein needs w/o DEX overloading >4kg/mg/min given ASPEN guidlines w/ pt hx T2DM. Recommendations: 1) Trickle J feeds per MD using Vital AF @ 20ml/hr goal; total volume not to exceed 100ml via J tube. Additional water flush 100ml Q4 via G-tube port 2) Per MD; Nocturnal 3:1 Clinimix E 5/15 2L bag w/ 100 mL 20% intralipids at goal rate 105mL/hr Q8. Initiate and wean at 30ml rate Q2 prior to and following goal rate. To provide: 960ml fluid, 730 non-protein kcals, 46g AA, and 137g DEX (DEX loading at goal=3.78 gm/kg/min). 3) Prealbumin q /; Daily wt Addendum: 07/16/18 at [address] Amended: Links added.
--- NOTE | 2018-07-16 18:20 | NUR ---
Patient in room CICU 2014. I have received report from Chavez GODWIN and had the opportunity to ask questions and assume patient care. Pt with ETT on vent with fio2 at 65%, spo2 reading 95%, all IV fluids infusing via PICC. All monitoring alarms audible. See interventions for further information. Will continue to monitor.
[2018-07-16] MEDS: insulin glargine (Lantus) pen - multi-dose SQ SCH (20:26)
[2018-07-17] VITALS (23 sets, daily range): BP systolic 94–152; BP diastolic 58–79
[2018-07-17] MEDS: hydrocortisone sod succ/PF 100mg/2ml inj. IV SCH ×3 (00:22→16:21)
[2018-07-17] MEDS: FENTANYL-0.9 % NACL/PF 100 ML IV PRN ×4 (01:21→21:29)
[2018-07-17] MEDS: mineral oil/petrolatum ophthal oint EACHEYE SCH ×4 (02:04→21:17)
[2018-07-17] MEDS: piperacillin/tazo 3.375gm/50ml 50 ML IV SCH ×4 (02:12→21:02)
[2018-07-17] MEDS: insulin regular, human vial - multi-dose SQ SCH ×3 (02:20→21:22)
[2018-07-17] MEDS: ipratropium/albuterol 3ml nebule NEB SCH ×4 (02:48→20:09)
[2018-07-17 03:05] LABS: ABG BASE EXCESS 3.9 mmol/L (-2.0-3.0); ABG HCO3 29.2 mmol/L (22.0-26.0); ABG OXYGEN SATURATION 94.7 % (95-98); ABG PCO2 (T) 47.4 mmHg (32.0-45.0); ABG PH (T) 7.408 (7.350-7.450); ABG PO2 (T) 70.2 mmHg (83-108); FCOHb 0.3 % (0.5-1.5); FMetHb 0.2 % (0.3-1.12); FO2Hb 94.2 % (94-100); MINUTE VOLUME 8 L/min; PATIENT TEMPERATURE 37.1; PEEP 5 cm H2O; RESPIRATORY RATE 12 b/min; RESPIRATORY RATE (OBSERVED) 12 b/min; TIDAL VOLUME 500 mL; TOTAL HEMOGLOBIN 11.5 G/dl (12.0-16.0)
[2018-07-17 03:17] LABS: HEMATOCRIT 31.5 % (35.0-45.0); HEMOGLOBIN 10.4 g/dl (12.0-16.0); MEAN CORPUSCULAR HEMOGLOBIN 31.6 PG (27.0-31.0); MEAN CORPUSCULAR HGB CONC 33.1 % (33.0-36.5); MEAN CORPUSCULAR VOLUME 95.5 FL (78-98); MEAN PLATELET VOLUME 8.7 FL (7.4-10.4); PLATELET COUNT 117 X10'3 (140-440); RED BLOOD COUNT 3.29 X10'6 (4.20-5.60); RED CELL DISTRIBUTION WIDTH 14.5 % (11.5-14.5); WHITE BLOOD COUNT 6.1 X10'3 (4.5-11.0)
[2018-07-17 03:22] LABS: ALANINE AMINOTRANSFERASE 156 U/L (12-78); ALBUMIN 1.6 G/DL (3.4-5.0); ALBUMIN/GLOBULIN RATIO 0.6 (1.1-1.5); ALKALINE PHOSPHATASE 89 IU/L (46-116); ANION GAP 7 (8-16); ASPARTATE AMINO TRANSFERASE 75 U/L (10-37); BILIRUBIN,TOTAL 0.4 MG/DL (0.1-1.0); BLOOD UREA NITROGEN 27 MG/DL (7-18); CHLORIDE 107 MMOL/L (99-107); GLUCOSE 191 MG/DL (70-104); MAGNESIUM 1.6 MG/DL (1.5-2.4); PHOSPHORUS 3.5 MG/DL (2.3-4.5); POTASSIUM 3.4 MMOL/L (3.5-5.1); SODIUM 143 MMOL/L (135-145); TOTAL CARBON DIOXIDE 28.6 MMOL/L (24-32); TOTAL PROTEIN 4.4 G/DL (6.4-8.2); eGFR > 90 ML/MIN
[2018-07-17 04:00] LABS: TOTAL CELLS COUNTED 100
[2018-07-17 04:01] LABS: PLATELET ESTIMATE DECREASED
[2018-07-17] MEDS: dexmedetomidin/NS 400mcg/100ml 100 ML IV SCH ×2 (05:21→15:07)
--- NOTE | 2018-07-17 06:20 | NUR ---
Problems reprioritized. Patient report given, questions answered & plan of care reviewed with Chavez GODWIN.
--- NOTE | 2018-07-17 06:30 | NUR ---
Patient in room CICU 2014. I have received report from CITLALI Orozco and had the opportunity to ask questions and assume patient care.
[2018-07-17] MEDS: K, MAG and/or Phos replacement - Verify level? MC SCH (07:21)
[2018-07-17] MEDS: fluconazole/NS 400mg/200ml bag 200 ML IV SCH (07:29)
[2018-07-17] MEDS: docusate sod 100mg capsule PO SCH ×2 (07:29→21:03)
[2018-07-17] MEDS: methylnaltrexone br 12mg/0.6ml inj***SubQ only SQ SCH (07:30)
[2018-07-17] MEDS: lactobacillus rhamnosus 10,000 MMU CELLS/CAPSULE PO SCH ×2 (07:30→21:03)
[2018-07-17] MEDS: heparin, porcine 5000 units/ml vial SQ SCH ×2 (07:30→21:16)
[2018-07-17] MEDS: pantoprazole 40 MG vial IV SCH ×2 (07:30→21:02)
[2018-07-17] MEDS ORDERED: furosemide 40mg/4ml inj IV ONE (10:35)
--- NOTE | 2018-07-17 12:10 | NUR ---
Pt SpO2 mid-upper 80's, assessed, suctioned, repositioned, placed on 100%, Regino, Bridgette and Dr He notified. Verbal order to place pt on FiO2 of 70% and PEEP 10 given and he states he will be by shortly. Regino makes adjustments to ventilator. Will monitor.
--- NOTE | 2018-07-17 14:45 | NUR ---
Performed a f/u Accucheck based on previous Accucheck level with a sample drawn from the PICC line as opposed to a finger-stick like before. F/u Accucheck confirmed blood glucose from previous check to likely be accurate. 1/2 amp D50 given per orders, Dr He on CICU and informed. States to watch the blood glucose closely and decrease the level of insulin she is receiving. Will monitor.
[2018-07-17] MEDS: dextrose 50%-water 50ml dispensing syringe IV PRN (14:49)
[2018-07-17] MEDS: furosemide 40mg/4ml inj IV SCH ×2 (16:21→21:16)
[2018-07-17] MEDS ORDERED: fat emulsion IV 100 ML, MVI, adult No.4 with vit. K 10 ML, Trace element-5 inj. 1 ML in... IV SCH ×4 (18:00)
[2018-07-17 20:16] LABS: MAGNESIUM 1.4 MG/DL (1.5-2.4)
[2018-07-17 20:21] LABS: POTASSIUM 2.5 MMOL/L (3.5-5.1)
[2018-07-17] MEDS: potassium Cl 40MEQ/250ML bag 250 ML IV PRN ×2 (21:03→23:25)
[2018-07-17] MEDS: insulin glargine (Lantus) pen - multi-dose SQ SCH (21:21)
[2018-07-18] VITALS (24 sets, daily range): BP systolic 86–135; BP diastolic 49–75
[2018-07-18 00:31] LABS: UREA NITROGEN 24HR,URINE 19.6 GM/24HR (7-20)
[2018-07-18] MEDS: hydrocortisone sod succ/PF 100mg/2ml inj. IV SCH ×3 (00:48→16:27)
[2018-07-18] MEDS: dexmedetomidin/NS 400mcg/100ml 100 ML IV SCH ×3 (00:51→19:22)
[2018-07-18] MEDS: furosemide 40mg/4ml inj IV SCH ×4 (02:23→20:28)
[2018-07-18] MEDS: piperacillin/tazo 3.375gm/50ml 50 ML IV SCH ×4 (02:28→20:44)
[2018-07-18] MEDS: mineral oil/petrolatum ophthal oint EACHEYE SCH ×4 (02:28→20:44)
[2018-07-18] MEDS: insulin regular, human vial - multi-dose SQ SCH ×2 (02:52→20:57)
[2018-07-18] MEDS: ipratropium/albuterol 3ml nebule NEB SCH ×4 (03:14→20:48)
[2018-07-18 03:24] LABS: BASOPHILS % (AUTO) 0.1 % (0-1); EOSINOPHILS % (AUTO) 0.2 % (0-6); LYMPHOCYTES # (AUTO) 0.3 X10'3 (1.1-4.8); LYMPHOCYTES % (AUTO) 3.6 % (21-51); MEAN CORPUSCULAR HEMOGLOBIN 31.4 PG (27.0-31.0); MEAN CORPUSCULAR HGB CONC 32.4 % (33.0-36.5); MEAN CORPUSCULAR VOLUME 96.7 FL (78-98); MEAN PLATELET VOLUME 8.7 FL (7.4-10.4); MONOCYTES # (AUTO) 0.5 X10'3 (0-0.9); MONOCYTES % (AUTO) 5.1 % (2-12); NEUTROPHILS # (AUTO) 8.1 X10'3 (1.8-7.7); PLATELET COUNT 126 X10'3 (140-440); RED BLOOD COUNT 3.52 X10'6 (4.20-5.60); RED CELL DISTRIBUTION WIDTH 14.5 % (11.5-14.5); WHITE BLOOD COUNT 8.9 X10'3 (4.5-11.0)
[2018-07-18 03:27] LABS: ALANINE AMINOTRANSFERASE 161 U/L (12-78); ALBUMIN 1.8 G/DL (3.4-5.0); ALBUMIN/GLOBULIN RATIO 0.6 (1.1-1.5); ALKALINE PHOSPHATASE 92 IU/L (46-116); ANION GAP 5 (8-16); ASPARTATE AMINO TRANSFERASE 52 U/L (10-37); BILIRUBIN,TOTAL 0.4 MG/DL (0.1-1.0); BLOOD UREA NITROGEN 27 MG/DL (7-18); CALCIUM 7.6 MG/DL (8.5-10.1); CHLORIDE 103 MMOL/L (99-107); GLUCOSE 175 MG/DL (70-104); MAGNESIUM 1.4 MG/DL (1.5-2.4); PHOSPHORUS 3.7 MG/DL (2.3-4.5); SODIUM 143 MMOL/L (135-145); TOTAL CARBON DIOXIDE 34.8 MMOL/L (24-32); TOTAL PROTEIN 4.6 G/DL (6.4-8.2); eGFR > 90 ML/MIN
[2018-07-18 03:34] LABS: POTASSIUM 2.7 MMOL/L (3.5-5.1)
[2018-07-18] MEDS: FENTANYL-0.9 % NACL/PF 100 ML IV PRN ×3 (04:00→19:22)
[2018-07-18 04:10] LABS: ABG BASE EXCESS 8.6 mmol/L (-2.0-3.0); ABG OXYGEN SATURATION 95.9 % (95-98); ABG PCO2 (T) 45.3 mmHg (32.0-45.0); ABG PH (T) 7.481 (7.350-7.450); ABG PO2 (T) 78.1 mmHg (83-108); FCOHb 0.7 % (0.5-1.5); FMetHb 0.1 % (0.3-1.12); FO2Hb 95.1 % (94-100); MINUTE VOLUME 11 L/min; PATIENT TEMPERATURE 37.2; PEEP 10 cm H2O; RESPIRATORY RATE 12 b/min; RESPIRATORY RATE (OBSERVED) 16 b/min; TIDAL VOLUME 500 mL
[2018-07-18] MEDS: potassium Cl 40MEQ/250ML bag 250 ML IV PRN ×2 (04:45→07:40)
--- NOTE | 2018-07-18 06:30 | NUR ---
Patient in room CICU 2014. I have received report from CITLALI Orozco and had the opportunity to ask questions and assume patient care.
--- NOTE | 2018-07-18 06:42 | NUR ---
Problems reprioritized. Patient report given, questions answered & plan of care reviewed with Kiara GODWIN.
[2018-07-18] MEDS: heparin, porcine 5000 units/ml vial SQ SCH ×2 (07:49→20:43)
[2018-07-18] MEDS: pantoprazole 40 MG vial IV SCH ×2 (07:52→20:44)
[2018-07-18] MEDS: docusate sod 100mg capsule PO SCH ×2 (07:52→20:43)
[2018-07-18] MEDS: lactobacillus rhamnosus 10,000 MMU CELLS/CAPSULE PO SCH ×2 (07:53→20:43)
[2018-07-18] MEDS: K, MAG and/or Phos replacement - Verify level? MC SCH (07:53)
[2018-07-18] MEDS: dextrose 50%-water 50ml dispensing syringe IV PRN (08:02)
--- NOTE | 2018-07-18 08:30 | NUR ---
Unable to give insulin because patient blood sugar too low and required dex50
[2018-07-18] MEDS: fluconazole/NS 400mg/200ml bag 200 ML IV SCH (09:08)
[2018-07-18] MEDS ORDERED: potassium Cl oral solution 20 MEQ/15 ML PO ONE (09:45)
--- NOTE | 2018-07-18 10:40 | NUR ---
Dr Watkins and critical care team at bedside. Discussed the resp status, PEEP of 10, FiO2 of 65, lasix 40mg q6 but that this morning's dose was held for low blood pressure. Also talked about potassium massively dropping to 2.5 last night and that she's had a total of 4 bags of replacement and the one time dose of K PO he ordered. He states we will continue replacing BID and keep giving the lasix to try and clear up her lungs. Give IV K if needed in between. We discussed wound care - wound care nurse covering tomorrow will place wound vac, continue wet to dry and inform Dr Ogden. Also asked if we can increase TF now that pt is having stool out of ostomy and then can we DC the TPN at night and he states to ask Dr Ogden. Also states not to go down on PEEP until FiO2 is down.
--- NOTE | 2018-07-18 10:50 | NUR ---
Spoke with Dr Ogden who states he will be in to talk about the patient, okay to keep doing wet to dry dressings until tomorrow.
--- NOTE | 2018-07-18 12:11 | NUR ---
Reassessment: Pt continues with noct TPN with trickle TF of Vital AF at 20 mL/hr and tolerating with residuals 0-5 mL. Per RN pt with stooling, per business applications analyst pt may wean off TPN and increase TF for nutrition pending discussion with wound care team for poss wound VAC placement to abdomen. If pt weans off noct TPN and uses TF for sole source of nutrition, recommend goal rate of 50 mL/hr with Vital AF to meet nutrient needs. Will continue to follow. Recommendations: 1) Trickle J feeds per MD using Vital AF @ 20ml/hr goal; total volume not to exceed 100ml via J tube. Additional water flush 100ml Q4 via G-tube port 2) Per MD; Nocturnal 3:1 Clinimix E 5/15 2L bag w/ 100 mL 20% intralipids at goal rate 105mL/hr Q8. Initiate and wean at 30ml rate Q2 prior to and following goal rate. To provide: 960ml fluid, 730 non-protein kcals, 46g AA, and 137g DEX (DEX loading at goal=3.78 gm/kg/min). 3) Prealbumin q /; Daily wt 4) If pt to wean TPN, recommend advancing TF goal rate of 50 mL/hr with Vital AF Addendum: 07/18/18 at [address] Amended: Links added.
--- NOTE | 2018-07-18 12:55 | NUR ---
Dr Ogden at bedside assessing patient and states okay to stop TPN completely and increase TF rate based on medical management specialist's assessment. No residuals from G tube when he checked. He states okay to continue wet to dry dressings until tomorrow when wound care places wound vac on, as long as the wound vac can be changed on either Monday, Monday or Monday.
--- NOTE | 2018-07-18 13:39 | NUR ---
TF consult: Per RN TPN has been d/c'ed. Recommend TF advancement with Vital AF to goal of 50 mL/hr via J-tube to provide total volume of 1200 mL/day, 1440 kcal, 81 g protein, and 917 water. Will continue to follow. Reassessment: Pt continues with noct TPN with trickle TF of Vital AF at 20 mL/hr and tolerating with residuals 0-5 mL. Per RN pt with stooling, per follow up clerk pt may wean off TPN and increase TF for nutrition pending discussion with wound care team for poss wound VAC placement to abdomen. If pt weans off noct TPN and uses TF for sole source of nutrition, recommend goal rate of 50 mL/hr with Vital AF to meet nutrient needs. Will continue to follow. Recommendations: 1) Continuous J feeds using Vital AF with 50 ml/hr goal; total volume not to exceed 100ml via J tube. Additional water flush 100ml Q4 via G-tube port 2) Prealbumin q /; Daily wt Addendum: 07/18/18 at [address] Amended: Links added.
[2018-07-18] MEDS: potassium Cl oral solution 20 MEQ/15 ML PO SCH ×2 (13:40→20:28)
--- NOTE | 2018-07-18 16:30 | NUR ---
Dressings changed to abdomen wet to dry. Half a roll of kerlix completely wet packed, covered with ABD dressing, gauze around the j tube.
--- NOTE | 2018-07-18 18:30 | NUR ---
Problems reprioritized. Patient report given, questions answered & plan of care reviewed with CITLALI Nuno.
--- NOTE | 2018-07-18 18:31 | NUR ---
Patient in room CICU 2014. I have received report from Kiara GODWIN and had the opportunity to ask questions and assume patient care.
[2018-07-18] MEDS: insulin glargine (Lantus) pen - multi-dose SQ SCH (20:59)
[2018-07-19] VITALS (24 sets, daily range): BP systolic 11–141; BP diastolic 56–77
[2018-07-19] MEDS: hydrocortisone sod succ/PF 100mg/2ml inj. IV SCH ×3 (01:05→16:44)
[2018-07-19 02:11] LABS: BASOPHILS # (AUTO) 0.1 X10'3 (0-0.2); BASOPHILS % (AUTO) 0.6 % (0-1); EOSINOPHILS % (AUTO) 0.2 % (0-6); HEMATOCRIT 32.5 % (35.0-45.0); HEMOGLOBIN 10.8 g/dl (12.0-16.0); LYMPHOCYTES # (AUTO) 0.7 X10'3 (1.1-4.8); LYMPHOCYTES % (AUTO) 5.6 % (21-51); MEAN CORPUSCULAR HEMOGLOBIN 32.1 PG (27.0-31.0); MEAN CORPUSCULAR HGB CONC 33.1 % (33.0-36.5); MEAN CORPUSCULAR VOLUME 96.9 FL (78-98); MEAN PLATELET VOLUME 8.7 FL (7.4-10.4); MONOCYTES # (AUTO) 0.6 X10'3 (0-0.9); MONOCYTES % (AUTO) 5.5 % (2-12); NEUTROPHILS # (AUTO) 10.2 X10'3 (1.8-7.7); NEUTROPHILS % (AUTO) 88.1 % (42-75); PLATELET COUNT 128 X10'3 (140-440); RED BLOOD COUNT 3.36 X10'6 (4.20-5.60); RED CELL DISTRIBUTION WIDTH 14.4 % (11.5-14.5); WHITE BLOOD COUNT 11.6 X10'3 (4.5-11.0)
[2018-07-19 02:16] LABS: ALANINE AMINOTRANSFERASE 128 U/L (12-78); ALBUMIN 1.8 G/DL (3.4-5.0); ALBUMIN/GLOBULIN RATIO 0.6 (1.1-1.5); ALKALINE PHOSPHATASE 94 IU/L (46-116); ANION GAP 3 (8-16); ASPARTATE AMINO TRANSFERASE 34 U/L (10-37); BILIRUBIN,TOTAL 0.4 MG/DL (0.1-1.0); BLOOD UREA NITROGEN 26 MG/DL (7-18); BUN/CREATININE RATIO 39.4 (6.6-38.0); CALCIUM 7.7 MG/DL (8.5-10.1); CHLORIDE 104 MMOL/L (99-107); CREATININE 0.66 MG/DL (0.40-0.90); GLUCOSE 119 MG/DL (70-104); MAGNESIUM 1.4 MG/DL (1.5-2.4); PREALBUMIN 24.2 MG/DL (19-36); SODIUM 146 MMOL/L (135-145); TOTAL CARBON DIOXIDE 38.9 MMOL/L (24-32); TOTAL PROTEIN 4.7 G/DL (6.4-8.2); TRIGLYCERIDES 121 MG/DL (20-135); eGFR 87 ML/MIN
[2018-07-19] MEDS: potassium Cl oral solution 20 MEQ/15 ML PO SCH ×2 (02:26→08:27)
[2018-07-19] MEDS: mineral oil/petrolatum ophthal oint EACHEYE SCH ×4 (02:27→21:15)
[2018-07-19] MEDS: piperacillin/tazo 3.375gm/50ml 50 ML IV SCH ×4 (02:27→21:16)
[2018-07-19] MEDS: insulin regular, human vial - multi-dose SQ SCH ×4 (02:34→21:01)
[2018-07-19] MEDS: FENTANYL-0.9 % NACL/PF 100 ML IV PRN ×4 (02:40→22:59)
[2018-07-19] MEDS: potassium Cl 40MEQ/250ML bag 250 ML IV PRN ×2 (03:19→05:34)
[2018-07-19 03:32] LABS: TOTAL CELLS COUNTED 100
[2018-07-19 03:33] LABS: PLATELET ESTIMATE DECREASED
[2018-07-19] MEDS: ipratropium/albuterol 3ml nebule NEB SCH ×4 (03:55→20:47)
[2018-07-19] MEDS: furosemide 40mg/4ml inj IV SCH ×2 (04:14→08:26)
[2018-07-19] MEDS: dexmedetomidin/NS 400mcg/100ml 100 ML IV SCH ×3 (04:15→23:00)
[2018-07-19 04:36] LABS: ABG HCO3 30.4 mmol/L (22.0-26.0); ABG OXYGEN SATURATION 91.6 % (95-98); ABG PCO2 (T) 39.3 mmHg (32.0-45.0); ABG PH (T) 7.507 (7.350-7.450); ABG PO2 (T) 60.9 mmHg (83-108); FCOHb 0.3 % (0.5-1.5); FMetHb 0.2 % (0.3-1.12); FO2Hb 91.1 % (94-100); MINUTE VOLUME 13 L/min; PATIENT TEMPERATURE 37.2; PEEP 10 cm H2O; RESPIRATORY RATE 12 b/min; RESPIRATORY RATE (OBSERVED) 18 b/min; TIDAL VOLUME 500 mL
--- NOTE | 2018-07-19 06:00 | NUR ---
Patient in room CICU 2014. I have received report from CITLALI Nuno and had the opportunity to ask questions and assume patient care.
--- NOTE | 2018-07-19 06:46 | NUR ---
Problems reprioritized. Patient report given, questions answered & plan of care reviewed with Rehana GODWIN.
[2018-07-19] MEDS: lactobacillus rhamnosus 10,000 MMU CELLS/CAPSULE PO SCH ×2 (08:00→21:10)
[2018-07-19] MEDS: heparin, porcine 5000 units/ml vial SQ SCH ×2 (08:26→21:05)
[2018-07-19] MEDS: fluconazole/NS 400mg/200ml bag 200 ML IV SCH (08:26)
[2018-07-19] MEDS: pantoprazole 40 MG vial IV SCH ×2 (08:26→21:12)
[2018-07-19] MEDS: K, MAG and/or Phos replacement - Verify level? MC SCH (08:40)
--- NOTE | 2018-07-19 08:56 | NUR ---
RECOMMEND: 1. Daily bathing with no rinse skin cleanser. 2. Cream/Lotion to be applied to skin after bathing. 3. Lacey care Q shift and prn soiling followed by with Barrier Cream. 4. Turn patient Q 1-2 hrs and reposition with pillows. 5. Float heels to offload pressure. 6. Wound VAC to abdomen 125mmhg, low continuous.
[2018-07-19] MEDS: methylnaltrexone br 12mg/0.6ml inj***SubQ only SQ SCH (13:47)
--- NOTE | 2018-07-19 18:41 | NUR ---
Problems reprioritized. Patient report given, questions answered & plan of care reviewed with CITLALI Ricardo.
[2018-07-19] MEDS: insulin glargine (Lantus) pen - multi-dose SQ SCH (21:02)
[2018-07-19] MEDS: docusate sodium 100mg/10ml UD cup PO SCH (21:16)
[2018-07-20] VITALS (24 sets, daily range): BP systolic 101–162; BP diastolic 50–89
[2018-07-20] MEDS: hydrocortisone sod succ/PF 100mg/2ml inj. IV SCH ×3 (00:21→16:32)
[2018-07-20] MEDS: mineral oil/petrolatum ophthal oint EACHEYE SCH ×4 (02:00→20:00)
[2018-07-20] MEDS: piperacillin/tazo 3.375gm/50ml 50 ML IV SCH ×4 (02:00→21:11)
[2018-07-20] MEDS: ipratropium/albuterol 3ml nebule NEB SCH ×4 (02:19→21:34)
[2018-07-20 03:33] LABS: HEMATOCRIT 30.9 % (35.0-45.0); HEMOGLOBIN 10.2 g/dl (12.0-16.0); MEAN CORPUSCULAR HEMOGLOBIN 32.1 PG (27.0-31.0); MEAN CORPUSCULAR HGB CONC 33.1 % (33.0-36.5); MEAN CORPUSCULAR VOLUME 96.8 FL (78-98); MEAN PLATELET VOLUME 8.8 FL (7.4-10.4); PLATELET COUNT 114 X10'3 (140-440); RED BLOOD COUNT 3.19 X10'6 (4.20-5.60); RED CELL DISTRIBUTION WIDTH 14.7 % (11.5-14.5); WHITE BLOOD COUNT 9.9 X10'3 (4.5-11.0)
[2018-07-20 04:05] LABS: ALANINE AMINOTRANSFERASE 80 U/L (12-78); ALBUMIN 1.7 G/DL (3.4-5.0); ALBUMIN/GLOBULIN RATIO 0.6 (1.1-1.5); ALKALINE PHOSPHATASE 77 IU/L (46-116); ANION GAP 4 (8-16); ASPARTATE AMINO TRANSFERASE 19 U/L (10-37); BILIRUBIN,TOTAL 0.5 MG/DL (0.1-1.0); BLOOD UREA NITROGEN 28 MG/DL (7-18); BUN/CREATININE RATIO 49.1 (6.6-38.0); CALCIUM 7.2 MG/DL (8.5-10.1); CHLORIDE 107 MMOL/L (99-107); CREATININE 0.57 MG/DL (0.40-0.90); GLUCOSE 118 MG/DL (70-104); MAGNESIUM 1.4 MG/DL (1.5-2.4); PHOSPHORUS 2.8 MG/DL (2.3-4.5); SODIUM 146 MMOL/L (135-145); TOTAL CARBON DIOXIDE 35.4 MMOL/L (24-32); TOTAL PROTEIN 4.5 G/DL (6.4-8.2); eGFR > 90 ML/MIN
[2018-07-20 04:20] LABS: ABG BASE EXCESS 12.7 mmol/L (-2.0-3.0); ABG HCO3 38.3 mmol/L (22.0-26.0); ABG OXYGEN SATURATION 90.8 % (95-98); ABG PCO2 (T) 54.1 mmHg (32.0-45.0); ABG PH (T) 7.468 (7.350-7.450); ABG PO2 (T) 58.6 mmHg (83-108); ALLEN'S TEST Positive; FCOHb 0.2 % (0.5-1.5); FMetHb 0.3 % (0.3-1.12); FO2Hb 90.3 % (94-100); PEEP 5 cm H2O; RESPIRATORY RATE 12 b/min; TIDAL VOLUME 500 mL; TOTAL HEMOGLOBIN 11.4 G/dl (12.0-16.0)
[2018-07-20] MEDS: potassium Cl 40MEQ/250ML bag 250 ML IV PRN ×2 (05:20→12:25)
[2018-07-20 06:20] LABS: TOTAL CELLS COUNTED 100
[2018-07-20 06:21] LABS: PLATELET ESTIMATE DECREASED
[2018-07-20] MEDS: docusate sodium 100mg/10ml UD cup PO SCH ×2 (08:33→20:50)
[2018-07-20] MEDS: pantoprazole 40 MG vial IV SCH ×2 (08:33→20:50)
[2018-07-20] MEDS: heparin, porcine 5000 units/ml vial SQ SCH ×2 (08:33→21:05)
[2018-07-20] MEDS: dexmedetomidin/NS 400mcg/100ml 100 ML IV SCH (08:34)
[2018-07-20] MEDS: fluconazole/NS 400mg/200ml bag 200 ML IV SCH (08:35)
[2018-07-20] MEDS: lactobacillus rhamnosus 10,000 MMU CELLS/CAPSULE PO SCH ×2 (08:35→20:59)
[2018-07-20] MEDS: K, MAG and/or Phos replacement - Verify level? MC SCH (08:35)
[2018-07-20] MEDS: insulin regular, human vial - multi-dose SQ SCH ×3 (08:53→20:57)
--- NOTE | 2018-07-20 10:55 | NUR ---
Dr. He rounded on pt this AM, will attempt to extubate her straight to Bipap. Pt is awake and following commands. Addressed her electrolyte imbalance, will replace as needed, MD painter with mag level. Precedex has been halved and fentanyl has been off since early AM.
[2018-07-20] MEDS ORDERED: racepinephrine 11.25mg/0.5ml nebule NEB PRN (11:20)
[2018-07-20] MEDS ORDERED: ipratropium/albuterol 3ml nebule NEB PRN (11:20)
[2018-07-20] MEDS ORDERED: CADD PCA waste documentation MC PRN (11:20)
[2018-07-20] MEDS ORDERED: naloxone 0.4 mg/ml inj IV PRN (11:20)
--- NOTE | 2018-07-20 12:20 | NUR ---
Pt extubated by RT with RN in the room, put on ventrui mask until bipap could be set up. Pt did not drop her O2 saturations and tolerated the bipap mask fine. RN will consult Dr. He on how long to keep pt on bipap if she remains stable.
[2018-07-20] MEDS ORDERED: HYDROmorphone/NS 1 mg/ml CADD 50 ML IV SCH (13:00)
--- NOTE | 2018-07-20 13:15 | NUR ---
Addressed that pt has been on bipap for about an hour tolerating well with O2 sats in the mid 90's. Verbal orders to transition her to a NC and get a ABG on pt 20 mins after transition. RN will convey orders to RT.
[2018-07-20 14:00] LABS: ABG BASE EXCESS 11.4 mmol/L (-2.0-3.0); ABG HCO3 36.2 mmol/L (22.0-26.0); ABG OXYGEN SATURATION 92.5 % (95-98); ABG PCO2 (T) 48.5 mmHg (32.0-45.0); ABG PH (T) 7.491 (7.350-7.450); ABG PO2 (T) 61.6 mmHg (83-108); ALLEN'S TEST Positive; FCOHb 0.4 % (0.5-1.5); FLOW 6 L/min; FMetHb 0.2 % (0.3-1.12); FO2Hb 91.9 % (94-100); RESPIRATORY RATE (OBSERVED) 20 b/min; TOTAL HEMOGLOBIN 11.7 G/dl (12.0-16.0)
--- NOTE | 2018-07-20 14:04 | NUR ---
Reassessment: Patient has tube feedings continue via Jtube. No indications found for J tube placement. A BSS is pending. If able to meet nutrition PO patient's Jtube is not indicated. Patient had 150 ml stool out colostomy yesterday. Will continue to follow and monitor diet advancement and need for ONS. Recommendations: 1) If patient does not pass swallow eval continue Jtube feeds using Vital AF with 50 ml/hr goal; total volume not to exceed 100ml via J tube. Additional water flush 100ml Q4 via G-tube port 2) Prealbumin q M/; Daily wt 3) Advance diet as medically indicated per SECURITIES SETTLEMENT PROCESSOR recommendations Addendum: 07/20/18 at [address] Amended: Links added.
--- NOTE | 2018-07-20 18:31 | NUR ---
Problems reprioritized. Patient report given, questions answered & plan of care reviewed with CITLALI Ricardo.
--- NOTE | 2018-07-20 19:00 | NUR ---
Patient in room CICU 2014. I have received report from Rehana GODWIN and had the opportunity to ask questions and assume patient care.
[2018-07-20] MEDS: insulin glargine (Lantus) pen - multi-dose SQ SCH (20:58)
[2018-07-20] MEDS: HYDROcodone/acetaminophen 10/325mg tab PO PRN (21:00)
[2018-07-21] VITALS (16 sets, daily range): BP systolic 123–162; BP diastolic 48–86
[2018-07-21] MEDS: hydrocortisone sod succ/PF 100mg/2ml inj. IV SCH ×2 (00:26→16:14)
[2018-07-21] MEDS: mineral oil/petrolatum ophthal oint EACHEYE SCH ×4 (02:00→20:00)
[2018-07-21] MEDS: insulin regular, human vial - multi-dose SQ SCH ×4 (02:37→21:01)
[2018-07-21] MEDS: piperacillin/tazo 3.375gm/50ml 50 ML IV SCH ×4 (02:40→20:40)
[2018-07-21 03:04] LABS: BASOPHILS % (AUTO) 0.1 % (0-1); EOSINOPHILS # (AUTO) 0.2 X10'3 (0-0.9); EOSINOPHILS % (AUTO) 1.7 % (0-6); HEMATOCRIT 33.4 % (35.0-45.0); HEMOGLOBIN 10.8 g/dl (12.0-16.0); LYMPHOCYTES # (AUTO) 0.5 X10'3 (1.1-4.8); LYMPHOCYTES % (AUTO) 3.7 % (21-51); MEAN CORPUSCULAR HEMOGLOBIN 31.4 PG (27.0-31.0); MEAN CORPUSCULAR HGB CONC 32.3 % (33.0-36.5); MEAN CORPUSCULAR VOLUME 97.1 FL (78-98); MEAN PLATELET VOLUME 9.2 FL (7.4-10.4); MONOCYTES # (AUTO) 0.6 X10'3 (0-0.9); MONOCYTES % (AUTO) 4.2 % (2-12); NEUTROPHILS # (AUTO) 12.3 X10'3 (1.8-7.7); NEUTROPHILS % (AUTO) 90.3 % (42-75); PLATELET COUNT 145 X10'3 (140-440); RED BLOOD COUNT 3.44 X10'6 (4.20-5.60); RED CELL DISTRIBUTION WIDTH 15.9 % (11.5-14.5); WHITE BLOOD COUNT 13.7 X10'3 (4.5-11.0)
[2018-07-21] MEDS: ipratropium/albuterol 3ml nebule NEB SCH ×4 (03:10→20:51)
[2018-07-21 03:45] LABS: ALANINE AMINOTRANSFERASE 66 U/L (12-78); ALBUMIN 1.9 G/DL (3.4-5.0); ALBUMIN/GLOBULIN RATIO 0.6 (1.1-1.5); ALKALINE PHOSPHATASE 89 IU/L (46-116); ANION GAP 6 (8-16); ASPARTATE AMINO TRANSFERASE 23 U/L (10-37); BILIRUBIN,TOTAL 0.5 MG/DL (0.1-1.0); BLOOD UREA NITROGEN 32 MG/DL (7-18); BUN/CREATININE RATIO 54.2 (6.6-38.0); CALCIUM 8.1 MG/DL (8.5-10.1); CHLORIDE 106 MMOL/L (99-107); CREATININE 0.59 MG/DL (0.40-0.90); GLUCOSE 119 MG/DL (70-104); MAGNESIUM 1.7 MG/DL (1.5-2.4); PHOSPHORUS 2.8 MG/DL (2.3-4.5); POTASSIUM 3.3 MMOL/L (3.5-5.1); SODIUM 145 MMOL/L (135-145); TOTAL CARBON DIOXIDE 32.8 MMOL/L (24-32); TOTAL PROTEIN 4.9 G/DL (6.4-8.2); eGFR > 90 ML/MIN
[2018-07-21] MEDS: potassium Cl 40MEQ/250ML bag 250 ML IV PRN (07:35)
[2018-07-21] MEDS: K, MAG and/or Phos replacement - Verify level? MC SCH (08:00)
[2018-07-21] MEDS: docusate sodium 100mg/10ml UD cup PO SCH ×2 (08:00→20:00)
[2018-07-21] MEDS: methylnaltrexone br 12mg/0.6ml inj***SubQ only SQ SCH (08:00)
--- NOTE | 2018-07-21 08:00 | NUR ---
Dr Deluca at bedside. Would like to send patient to PCU after her swallow study, if ok with Dr He
--- NOTE | 2018-07-21 09:00 | NUR ---
Dr He at bedside. Orders to perform bedside swallow. Addendum: 07/21/18 at 1037 by Kirby Trujillo RN @0930; pt did not pass swallow study. Dr He updated; orders received
[2018-07-21] MEDS: lactobacillus rhamnosus 10,000 MMU CELLS/CAPSULE PO SCH ×2 (09:18→20:40)
[2018-07-21] MEDS: pantoprazole 40 MG vial IV SCH ×2 (09:18→20:39)
[2018-07-21] MEDS: heparin, porcine 5000 units/ml vial SQ SCH ×2 (09:18→20:39)
[2018-07-21] MEDS: fluconazole/NS 400mg/200ml bag 200 ML IV SCH (09:19)
--- NOTE | 2018-07-21 11:30 | NUR ---
Called to get report, reporting nurse not ready will call back.
[2018-07-21] MEDS: HYDROcodone/acetaminophen 10/325mg tab PO PRN (12:32)
--- NOTE | 2018-07-21 13:06 | NUR ---
TF consult: Patient's TF order was d/c and a regular diet was ordered prior to pt receiving a BSS. Per RN notes pt did not pass the BSS this AM so pt is to resume TF. Will continue with initial recommendations of goal rate of 50 mL/hr. Reassessment: Patient has tube feedings continue via Jtube. No indications found for J tube placement. A BSS is pending. If able to meet nutrition PO patient's Jtube is not indicated. Patient had 150 ml stool out colostomy yesterday. Will continue to follow and monitor diet advancement and need for ONS. Recommendations: 1) If patient does not pass swallow eval continue Jtube feeds using Vital AF with 50 ml/hr goal; total volume not to exceed 100ml via J tube. Additional water flush 100ml Q4 via G-tube port 2) Prealbumin q /; Daily wt 3) Advance diet as medically indicated per SEISMIC COMPUTER recommendations Addendum: 07/21/18 at [address] Amended: Links added.
--- NOTE | 2018-07-21 14:30 | NUR ---
Patient in room [facility] 346. I have received report from CITLALI Fernandez and had the opportunity to ask questions and assume patient care.
--- NOTE | 2018-07-21 18:20 | NUR ---
Problems reprioritized. Patient report given, questions answered & plan of care reviewed with CITLALI Carver.
[2018-07-21] MEDS: insulin glargine (Lantus) pen - multi-dose SQ SCH (21:03)
[2018-07-22] VITALS: BP 149/73
--- NOTE | 2018-07-22 00:40 | NUR ---
Entered room to find NC out of pt nares. Checked O2 saturations. Pt @ 65% on RA. Replaced O2, sats returned to 92% on 5L within two minutes with the instruction of taking deep breaths.
[2018-07-22] MEDS: hydrocortisone sod succ/PF 100mg/2ml inj. IV SCH ×3 (00:50→16:05)
[2018-07-22] MEDS: mineral oil/petrolatum ophthal oint EACHEYE SCH ×4 (01:01→19:07)
[2018-07-22] MEDS: piperacillin/tazo 3.375gm/50ml 50 ML IV SCH ×4 (01:59→20:24)
[2018-07-22] MEDS: insulin regular, human vial - multi-dose SQ SCH ×4 (02:03→20:06)
--- NOTE | 2018-07-22 02:07 | NUR ---
Pt blood glucose 79, dropped to a level 3 on hypergylcemic protocol. Provided pt with mouth swabs. Pt is asking for food and drink. Explained there was choking when fluids tested. Another BSS exam will be preformed within the next couple of days.
[2018-07-22] MEDS: ipratropium/albuterol 3ml nebule NEB SCH ×4 (02:50→20:19)
--- NOTE | 2018-07-22 06:27 | NUR ---
Problems reprioritized. Patient report given, questions answered & plan of care reviewed with CITLALI Blackmon.
--- NOTE | 2018-07-22 06:45 | NUR ---
Patient in room [facility] 346. I have received report from Wen GODWIN and had the opportunity to ask questions and assume patient care.
[2018-07-22 08:00] VITALS: BP 132/67
[2018-07-22] MEDS: K, MAG and/or Phos replacement - Verify level? MC SCH (08:00)
[2018-07-22] MEDS: lactobacillus rhamnosus 10,000 MMU CELLS/CAPSULE PO SCH ×2 (08:14→20:24)
[2018-07-22] MEDS: heparin, porcine 5000 units/ml vial SQ SCH ×2 (08:15→20:24)
[2018-07-22] MEDS: docusate sodium 100mg/10ml UD cup PO SCH ×2 (08:15→20:00)
[2018-07-22] MEDS: pantoprazole 40 MG vial IV SCH ×2 (08:15→20:24)
[2018-07-22] MEDS: fluconazole/NS 400mg/200ml bag 200 ML IV SCH (09:17)
--- NOTE | 2018-07-22 11:21 | NUR ---
Zoe BAUTISTA informed of no labs drawn today and K was replaced yesterday. Zoe BAUTISTA ordered labs for tomorrow am to recheck K level.
[2018-07-22 12:00] VITALS: BP 138/67
--- NOTE | 2018-07-22 17:38 | NUR ---
new ordered noted to attempt bedside swallow test. Pt began coughing with water. Pt will remain NPO and speech to do swallow study tomorrow.
--- NOTE | 2018-07-22 18:22 | NUR ---
Problems reprioritized. Patient report given, questions answered & plan of care reviewed with Elise GODWIN.
--- NOTE | 2018-07-22 18:25 | NUR ---
Patient in room [facility] 346. I have received report from CITLALI Blackmon and had the opportunity to ask questions and assume patient care. Addendum: 07/22/18 at 1859 by Alexander Blum RN Amended: Links added.
[2018-07-22] MEDS: insulin glargine (Lantus) pen - multi-dose SQ SCH (20:07)
[2018-07-22 23:30] VITALS: BP 126/54
[2018-07-23] MEDS: HYDROcodone/acetaminophen 10/325mg tab PO PRN ×4 (00:18→15:29)
[2018-07-23] MEDS: hydrocortisone sod succ/PF 100mg/2ml inj. IV SCH ×3 (00:18→15:32)
[2018-07-23] MEDS: piperacillin/tazo 3.375gm/50ml 50 ML IV SCH ×4 (01:54→20:17)
[2018-07-23] MEDS: insulin regular, human vial - multi-dose SQ SCH ×4 (01:57→21:00)
[2018-07-23] MEDS: mineral oil/petrolatum ophthal oint EACHEYE SCH (02:00)
[2018-07-23] MEDS: ipratropium/albuterol 3ml nebule NEB SCH ×4 (03:18→21:07)
--- NOTE | 2018-07-23 06:15 | NUR ---
Problems reprioritized. Patient report given, questions answered & plan of care reviewed with CITLALI Meyer. Addendum: 07/23/18 at 0616 by Alexander Blum RN Amended: Links added.
--- NOTE | 2018-07-23 06:32 | NUR ---
Problems reprioritized. Patient report given, questions answered & plan of care reviewed with CITLALI CHAVEZ. Addendum: 07/23/18 at 0633 by Alexander Blum RN Amended: Links added. Addendum: 07/23/18 at 0635 by Alexander Blum RN DISSREGARD ABOVE NOTE. WRONG PT.
[2018-07-23 07:00] VITALS: BP 109/54
[2018-07-23 07:33] LABS: BASOPHILS % (AUTO) 0.1 % (0-1); EOSINOPHILS # (AUTO) 0.1 X10'3 (0-0.9); EOSINOPHILS % (AUTO) 1.7 % (0-6); HEMATOCRIT 34.3 % (35.0-45.0); HEMOGLOBIN 11.2 g/dl (12.0-16.0); LYMPHOCYTES # (AUTO) 0.5 X10'3 (1.1-4.8); LYMPHOCYTES % (AUTO) 6.5 % (21-51); MEAN CORPUSCULAR HEMOGLOBIN 31.4 PG (27.0-31.0); MEAN CORPUSCULAR HGB CONC 32.6 % (33.0-36.5); MEAN CORPUSCULAR VOLUME 96.4 FL (78-98); MEAN PLATELET VOLUME 9.3 FL (7.4-10.4); MONOCYTES # (AUTO) 0.5 X10'3 (0-0.9); MONOCYTES % (AUTO) 7.2 % (2-12); NEUTROPHILS # (AUTO) 6.3 X10'3 (1.8-7.7); NEUTROPHILS % (AUTO) 84.5 % (42-75); PLATELET COUNT 140 X10'3 (140-440); RED BLOOD COUNT 3.56 X10'6 (4.20-5.60); RED CELL DISTRIBUTION WIDTH 16.2 % (11.5-14.5); WHITE BLOOD COUNT 7.4 X10'3 (4.5-11.0)
[2018-07-23 07:58] LABS: ALANINE AMINOTRANSFERASE 37 U/L (12-78); ALBUMIN 1.9 G/DL (3.4-5.0); ALBUMIN/GLOBULIN RATIO 0.7 (1.1-1.5); ALKALINE PHOSPHATASE 76 IU/L (46-116); ANION GAP 7 (8-16); ASPARTATE AMINO TRANSFERASE 18 U/L (10-37); BILIRUBIN,TOTAL 0.5 MG/DL (0.1-1.0); BLOOD UREA NITROGEN 27 MG/DL (7-18); CALCIUM 7.8 MG/DL (8.5-10.1); CHLORIDE 104 MMOL/L (99-107); CREATININE 0.54 MG/DL (0.40-0.90); GLUCOSE 159 MG/DL (70-104); MAGNESIUM 1.6 MG/DL (1.5-2.4); PHOSPHORUS 2.9 MG/DL (2.3-4.5); PREALBUMIN 25.2 MG/DL (19-36); SODIUM 143 MMOL/L (135-145); TOTAL CARBON DIOXIDE 32.3 MMOL/L (24-32); TOTAL PROTEIN 4.8 G/DL (6.4-8.2); TRIGLYCERIDES 78 MG/DL (20-135); eGFR > 90 ML/MIN
[2018-07-23] MEDS: K, MAG and/or Phos replacement - Verify level? MC SCH (08:00)
[2018-07-23] MEDS: POTASSIUM 40MEQ/500ML NS *****PERIPHERAL LINE REPLACE IV PRN ×2 (08:00→17:26)
[2018-07-23 08:02] LABS: POTASSIUM 2.5 MMOL/L (3.5-5.1)
[2018-07-23] MEDS: fluconazole/NS 400mg/200ml bag 200 ML IV SCH (09:05)
[2018-07-23] MEDS: methylnaltrexone br 12mg/0.6ml inj***SubQ only SQ SCH (09:07)
[2018-07-23] MEDS: pantoprazole 40 MG vial IV SCH ×2 (09:08→20:17)
[2018-07-23] MEDS: docusate sodium 100mg/10ml UD cup PO SCH ×2 (09:10→20:00)
[2018-07-23] MEDS: heparin, porcine 5000 units/ml vial SQ SCH ×2 (09:11→20:22)
[2018-07-23] MEDS: lactobacillus rhamnosus 10,000 MMU CELLS/CAPSULE PO SCH ×2 (09:13→20:20)
--- NOTE | 2018-07-23 11:52 | NUR ---
reassessment: Pt JTF tolerating at goal; advanced to pureed/thin per [employer] today. MAURILIO d/w RN for continuing JTF until pt PO at least 65% meals per MD approval in order to meet nutrition needs. 300ml colostomy output. K 2.5 receiving replacement currently per RN. PALB WNL 25.2. Will continue to monitor. Recommendations: 1) Continue pureed/thin liquids per [employer] 2) Jtube feeds using Vital AF with 50 ml/hr goal; total volume not to exceed 100ml via J tube. Additional water flush 100ml Q4 via G-tube port 3) Prealbumin q /; Daily wt 4) Continue JTF until PO greater than 65% avg meals Addendum: 07/23/18 at [address] Amended: Links added.
[2018-07-23 12:00] VITALS: BP 128/62
--- NOTE | 2018-07-23 15:59 | NUR ---
WOUND VAC EDUCATION PROVIDED BY WOUND CARE 1. Patient instructed to call the Wound Center or their Home Health Agency immediately if: * They notice a change in the color or amount of the fluid in the canister. * Their wound looks more red than usual or has a foul smell. * The skin around their wound looks reddened or irritated. * The dressing feels loose or appears to be loose. * They experience any increase or changes in their pain. * The alarm will not turn off. 2. Patient instructed that they should not be disconnected from suction for more than 2 hours at a time. * If they are not able to get the suction back on, they need to remove the dressing and take all of the foam out of the wound. * Then moisten sterile gauze with normal saline and place on/in the wound. * Change the dressing once a day until arrangements have been made to replace the wound vac dressing. 3. Patient instructed to turn the wound vac machine OFF and call 911 or go to the ED immediately if their canister fills rapidly with blood. 4. If any of these occur while in the hospital tell a nurse immediately. Addendum: 07/23/18 at 1607 by Brandi Dunaway RN Amended: Links added.
[2018-07-23 19:30] VITALS: BP 141/73
--- NOTE | 2018-07-23 19:30 | NUR ---
PEG site slightly inflamed; sutures intact Addendum: 07/24/18 at 0350 by Anna Noble RN Amended: Links added.
[2018-07-23] MEDS: potassium Cl oral solution 20 MEQ/15 ML PO SCH (20:21)
[2018-07-23] MEDS: insulin glargine (Lantus) pen - multi-dose SQ SCH (21:02)
[2018-07-23 23:30] VITALS: BP 107/62
[2018-07-24] MEDS: hydrocortisone sod succ/PF 100mg/2ml inj. IV SCH ×3 (00:28→16:01)
[2018-07-24] MEDS: piperacillin/tazo 3.375gm/50ml 50 ML IV SCH ×4 (01:34→20:33)
[2018-07-24] MEDS: insulin regular, human vial - multi-dose SQ SCH ×3 (02:07→14:24)
[2018-07-24] MEDS: ipratropium/albuterol 3ml nebule NEB SCH ×4 (03:54→21:43)
[2018-07-24 06:26] LABS: BASOPHILS % (AUTO) 0 % (0-1); EOSINOPHILS # (AUTO) 0.1 X10'3 (0-0.9); EOSINOPHILS % (AUTO) 1.7 % (0-6); HEMATOCRIT 31.6 % (35.0-45.0); HEMOGLOBIN 10.5 g/dl (12.0-16.0); LYMPHOCYTES # (AUTO) 0.4 X10'3 (1.1-4.8); LYMPHOCYTES % (AUTO) 6.9 % (21-51); MEAN CORPUSCULAR HEMOGLOBIN 32.1 PG (27.0-31.0); MEAN CORPUSCULAR HGB CONC 33.3 % (33.0-36.5); MEAN CORPUSCULAR VOLUME 96.3 FL (78-98); MEAN PLATELET VOLUME 8.9 FL (7.4-10.4); MONOCYTES # (AUTO) 0.3 X10'3 (0-0.9); MONOCYTES % (AUTO) 5.2 % (2-12); NEUTROPHILS # (AUTO) 5.6 X10'3 (1.8-7.7); NEUTROPHILS % (AUTO) 86.2 % (42-75); PLATELET COUNT 146 X10'3 (140-440); RED BLOOD COUNT 3.28 X10'6 (4.20-5.60); RED CELL DISTRIBUTION WIDTH 16.2 % (11.5-14.5); WHITE BLOOD COUNT 6.4 X10'3 (4.5-11.0)
[2018-07-24 07:02] LABS: ALBUMIN 1.9 G/DL (3.4-5.0); ANION GAP 4 (8-16); BLOOD UREA NITROGEN 26 MG/DL (7-18); CALCIUM 7.8 MG/DL (8.5-10.1); CHLORIDE 108 MMOL/L (99-107); GLUCOSE 132 MG/DL (70-104); POTASSIUM 3.4 MMOL/L (3.5-5.1); SODIUM 144 MMOL/L (135-145); TOTAL CARBON DIOXIDE 32.3 MMOL/L (24-32); eGFR > 90 ML/MIN
[2018-07-24 07:49] VITALS: BP 131/69
[2018-07-24] MEDS: K, MAG and/or Phos replacement - Verify level? MC SCH (08:00)
[2018-07-24] MEDS: fluconazole/NS 400mg/200ml bag 200 ML IV SCH (09:54)
[2018-07-24] MEDS: pantoprazole 40 MG vial IV SCH ×2 (09:54→20:38)
[2018-07-24] MEDS: lactobacillus rhamnosus 10,000 MMU CELLS/CAPSULE PO SCH ×2 (10:03→20:37)
[2018-07-24] MEDS: docusate sodium 100mg/10ml UD cup PO SCH ×2 (10:03→20:35)
[2018-07-24] MEDS: heparin, porcine 5000 units/ml vial SQ SCH ×2 (10:04→20:43)
[2018-07-24] MEDS: potassium Cl oral solution 20 MEQ/15 ML PO SCH ×2 (10:04→20:46)
[2018-07-24] MEDS: HYDROcodone/acetaminophen 10/325mg tab PO PRN (10:05)
[2018-07-24] MEDS ORDERED: LANTUS SQ (12:37)
[2018-07-24] MEDS ORDERED: INSU100V30 SQ (12:37)
--- NOTE | 2018-07-24 18:18 | NUR ---
Patient in room DELIA 346. I have received report from Betsy GODWIN and had the opportunity to ask questions and assume patient care. Pt sitting up in bed eating dinner. Tube feeding is running, wound vac has no leaks. Will continue to monitor until pt is picked up by [facility].
--- NOTE | 2018-07-24 18:48 | NUR ---
Report called to Kassy GODWIN at [facility].
[2018-07-24 20:00] VITALS: BP 149/72
[2018-07-24] MEDS: insulin glargine (Lantus) pen - multi-dose SQ SCH (22:26)
--- NOTE | 2018-07-24 23:16 | NUR ---
Pt left the unit at 2215 with EMS on a gurney. Her tube feeding was disconnected and alcohol caps were placed on all three ports of the PICC line. G-tube feeding was disconnected, tube was secured and 2 extra bottles of feeding were sent with EMS. Pt was disconnected from wall O2 and connected to EMS O2. Wound vac was connected to pole on [facility] and cord was sent with unit. Reese bag was placed between pt legs on [facility]. 3 bags of personal belongings were given to EMS. Pt stable at discharge.
== END 2018-07-24 22:50 | DRG 853 ==
LOC: ER 00:12 → ED HOLD 04:09 → SUR 3N 05:00 → CICU 2S 09:44 → SUR 3N 07-21 14:15
PROVIDERS: ADMIT Family Medicine; ATTEND Internal Medicine Critical Care Medicine
PROC: BW211ZZ Computerized Tomography (CT Scan) of Abdomen and Pelvis using Low Osmolar Contrast (ICD-10-PCS; 2018-07-10)
PROC: 02HV33Z Insertion of Infusion Device into Superior Vena Cava, Percutaneous Approach (ICD-10-PCS; 2018-07-10)
PROC: B548ZZA Ultrasonography of Superior Vena Cava, Guidance (ICD-10-PCS; 2018-07-10)
PROC: 03HY32Z Insertion of Monitoring Device into Upper Artery, Percutaneous Approach (ICD-10-PCS; 2018-07-10)
PROC: 4A133B1 Monitoring of Arterial Pressure, Peripheral, Percutaneous Approach (ICD-10-PCS; 2018-07-10)
PROC: 4A133J1 Monitoring of Arterial Pulse, Peripheral, Percutaneous Approach (ICD-10-PCS; 2018-07-10)
PROC: 5A1955Z Respiratory Ventilation, Greater than 96 Consecutive Hours (ICD-10-PCS; 2018-07-10)
PROC: 0DB80ZZ Excision of Small Intestine, Open Approach (ICD-10-PCS; principal; 2018-07-10 07:15)
PROC: 0WQF0ZZ Repair Abdominal Wall, Open Approach (ICD-10-PCS; 2018-07-12)
PROC: 0DHA0UZ Insertion of Feeding Device into Jejunum, Open Approach (ICD-10-PCS; 2018-07-12)
PROC: 02HV33Z Insertion of Infusion Device into Superior Vena Cava, Percutaneous Approach (ICD-10-PCS; 2018-07-16)
PROC: B548ZZA Ultrasonography of Superior Vena Cava, Guidance (ICD-10-PCS; 2018-07-16)
DX: A41.9 Sepsis, unspecified organism (principal); K63.1 Perforation of intestine (nontraumatic); K65.0 Generalized (acute) peritonitis; J96.00 Acute respiratory failure, unspecified whether with hypoxia or hypercapnia; K43.4 Parastomal hernia with gangrene; R65.21 Severe sepsis with septic shock; K55.029 Acute infarction of small intestine, extent unspecified; J44.1 Chronic obstructive pulmonary disease with (acute) exacerbation; K92.2 Gastrointestinal hemorrhage, unspecified; K43.6 Other and unspecified ventral hernia with obstruction, without gangrene; K43.0 Incisional hernia with obstruction, without gangrene; Z93.3 Colostomy status; E11.65 Type 2 diabetes mellitus with hyperglycemia; K66.8 Other specified disorders of peritoneum; F03.90 Unspecified dementia, unspecified severity, without behavioral disturbance, psychotic disturbance, mood disturbance, and anxiety; E78.00 Pure hypercholesterolemia, unspecified; G89.4 Chronic pain syndrome; I50.9 Heart failure, unspecified; M54.9 Dorsalgia, unspecified; I48.91 Unspecified atrial fibrillation; I11.0 Hypertensive heart disease with heart failure; I25.10 Atherosclerotic heart disease of native coronary artery without angina pectoris; Z90.2 Acquired absence of lung [part of]; Z90.49 Acquired absence of other specified parts of digestive tract; Z95.2 Presence of prosthetic heart valve; Z95.1 Presence of aortocoronary bypass graft; Z79.84 Long term (current) use of oral hypoglycemic drugs; Z79.891 Long term (current) use of opiate analgesic; Z79.4 Long term (current) use of insulin; Z87.891 Personal history of nicotine dependence
CPT/HCPCS: 36415; 36569; 36600; 71045; 74177; 76937; 80048; 80053; 80162; 80202; 82803; 82810; 82948; 83036; 83605; 83690; 83735; 83880; 84100; 84132; 84134; 84145; 84443; 84478; 84484; 84560; 85007; 85018; 85025; 85027; 85610; 86885; 86900; 86901; 87070; 88307; 92616; 93308; 94002; 94003; 94640; 94660; 94667; 94668; 94760; 96374; 96375; 96376; 97110; 97116; 97162; 97530; 99291; A4421; A6258; A6449; A7000; C9113; G0378; J1170; J1450; J1644; J1720; J1815; J1940; J1956; J2250; J2270; J2370; J2405; J2543; J2930; J3010; J3370; J3480; J3490; J7030; J7060; J7120; P9047; Q9967

== ENCOUNTER 2019-12-19 15:07 | Inpatient (IN) | payer MEDICARE ==
[~2019-12-19] VITALS: Ht 157.5 cm; Wt 59.1 kg
[~2019-12-19 15:07] MED LIST changes: +INSU100V30 SQ; +LANTUS SQ; -LEVO750T46 PO; -MAGN400O6 PO; -METF-436 PO; -METH125V10 IV; -OMEP20CA10 PO; +OMEP20CA15 PO; -SENN-162 PO; +SENN-263 PO
[2019-12-19 16:30] LABS: ALANINE AMINOTRANSFERASE 17 U/L (12-78); ALBUMIN 3.3 G/DL (3.4-5.0); ALKALINE PHOSPHATASE 65 IU/L (46-116); ANION GAP -3 (8-16); ASPARTATE AMINO TRANSFERASE 15 U/L (10-37); BILIRUBIN,TOTAL 0.5 MG/DL (0.1-1.0); BLOOD UREA NITROGEN 19 MG/DL (7-18); BUN/CREATININE RATIO 32.8 (6.6-38.0); CALCIUM 9.5 MG/DL (8.5-10.1); CHLORIDE 103 MMOL/L (99-107); CREATININE 0.58 MG/DL (0.40-0.90); GLUCOSE 100 MG/DL (70-104); POTASSIUM 4.8 MMOL/L (3.5-5.1); SODIUM 142 MMOL/L (135-145); TOTAL PROTEIN 6.5 G/DL (6.4-8.2); eGFR > 90 ML/MIN
[2019-12-19 16:34] LABS: TOTAL CARBON DIOXIDE 42.2 MMOL/L (24-32)
[2019-12-19 16:50] LABS: BASOPHILS % (AUTO) 0.3 % (0-1); EOSINOPHILS # (AUTO) 0.1 X10'3 (0-0.9); EOSINOPHILS % (AUTO) 2.2 % (0-6); HEMATOCRIT 45.1 % (35.0-45.0); HEMOGLOBIN 14.6 g/dl (12.0-16.0); LYMPHOCYTES # (AUTO) 0.8 X10'3 (1.1-4.8); LYMPHOCYTES % (AUTO) 17.6 % (21-51); MEAN CORPUSCULAR HEMOGLOBIN 33.3 PG (27.0-31.0); MEAN CORPUSCULAR HGB CONC 32.4 g/dL (33.0-36.5); MEAN CORPUSCULAR VOLUME 102.9 FL (78-98); MEAN PLATELET VOLUME 8.4 FL (7.4-10.4); MONOCYTES # (AUTO) 0.4 X10'3 (0-0.9); NEUTROPHILS # (AUTO) 3.1 X10'3 (1.8-7.7); NEUTROPHILS % (AUTO) 69.9 % (42-75); PLATELET COUNT 97 X10'3 (140-440); RED BLOOD COUNT 4.38 X10'6 (4.20-5.60); WHITE BLOOD COUNT 4.5 X10'3 (4.5-11.0)
[2019-12-19] MEDS ORDERED: normal saline 1000ml 1,000 ML IV ONE (16:56)
[2019-12-19] MEDS ORDERED: normal saline 1000ML IV soln IVB ONE (17:00)
[2019-12-19] MEDS ORDERED: albuterol 2.5 MG/3 ML nebule NEB ONE (17:00)
[2019-12-19 17:25] LABS: ABG BASE EXCESS 14.1 mmol/L (-2.0-3.0); ABG HCO3 44.4 mmol/L (22.0-26.0); ABG OXYGEN SATURATION 77.3 % (95-98); ABG PCO2 (T) 83.8 mmHg (35.0-45.0); ABG PH (T) 7.342 (7.350-7.450); ABG PO2 (T) 43.7 mmHg (83-108); FCOHb 2.4 % (0.5-1.5); FMetHb 0.1 % (0.3-1.12); FO2Hb 75.4 % (94-100); TOTAL HEMOGLOBIN 15.2 G/dl (12.0-16.0)
--- NOTE | 2019-12-19 17:49 | NUR ---
Pt's son is Mack Yates, who is her POA. His number is [phone]. Gave him an update on the pt.
[2019-12-19] MEDS ORDERED: DONE10TA7 PO (19:07)
[2019-12-19] MEDS ORDERED: SERT50TA10 PO (19:07)
[2019-12-19] MEDS ORDERED: [UNRECOGNIZED DRUG - CODE] PO (19:07)
[2019-12-19] MEDS ORDERED: POTA20TA10 PO (19:07)
[2019-12-19] MEDS ORDERED: OMEP-50 PO (19:07)
[2019-12-19] MEDS ORDERED: METF-437 PO (19:07)
[2019-12-19] MEDS ORDERED: DIVA125T9 PO (19:07)
[2019-12-19] MEDS ORDERED: BENZ0.5T43 PO (19:07)
[2019-12-19] MEDS ORDERED: SENN-263 PO (19:07)
[2019-12-19 19:25] LABS: ABG BASE EXCESS 14.6 mmol/L (-2.0-3.0); ABG HCO3 45.2 mmol/L (22.0-26.0); ABG OXYGEN SATURATION 96.3 % (95-98); ABG PCO2 (T) 87.3 mmHg (35.0-45.0); ABG PO2 (T) 87.2 mmHg (83-108); ALLEN'S TEST POSITIVE; FMetHb 0.2 % (0.3-1.12); FO2Hb 94.2 % (94-100); PATIENT TEMPERATURE 36.7; RESPIRATORY RATE 14 b/min; TOTAL HEMOGLOBIN 14.5 G/dl (12.0-16.0)
[2019-12-19] MEDS ORDERED: temazepam 15mg capsule PO PRN (21:00)
[2019-12-19] MEDS ORDERED: methylPREDNISolone sod succ 125mg/2ml vial IV ONE (21:15)
[2019-12-19] MEDS: normal saline 1000ml 1,000 ML IV SCH (21:31)
[2019-12-19] MEDS ORDERED: potassium Cl 20 mEq SR tablet PO PRN ×2 (21:35)
[2019-12-19] MEDS ORDERED: HYDROcodone/acetaminophen 5mg/325mg tablet PO PRN (21:35)
[2019-12-19] MEDS ORDERED: acetaminophen 325mg tablet PO PRN ×2 (21:35)
[2019-12-19] MEDS ORDERED: mag hydrox/Alum hydrox/simeth 30ml oral suspension PO PRN (21:35)
[2019-12-19] MEDS ORDERED: ipratropium/albuterol 3ml nebule NEB PRN (21:35)
[2019-12-19] MEDS ORDERED: HYDROmorphone inj. 0.5 MG/0.5 ML DISP.SYRIN IV PRN (21:35)
[2019-12-19] MEDS ORDERED: bisacodyl 10mg suppository rectal RC PRN (21:35)
[2019-12-19] MEDS ORDERED: HYDROmorphone 1 mg/ml syringe IV PRN (21:35)
[2019-12-19] MEDS ORDERED: acetaminophen 650mg rectal suppository RC PRN (21:35)
[2019-12-19] MEDS ORDERED: magnesium hydroxide 30ml (MOM) UD suspension PO PRN (21:35)
[2019-12-19] MEDS ORDERED: potassium CL 10mEq/100ml bag 100 ML IV PRN ×2 (21:35)
[2019-12-19] MEDS ORDERED: ondansetron/PF 4mg/2ml inj IV PRN (21:35)
[2019-12-19] MEDS ORDERED: metoclopramide 5 mg/ml inj IV PRN (21:35)
[2019-12-19] MEDS ORDERED: HYDROcodone/acetaminophen 10/325mg tab PO PRN (21:35)
[2019-12-19 23:00] VITALS: BP 119/65
[2019-12-19] MEDS: ipratropium/albuterol 3ml nebule NEB SCH (23:30)
[2019-12-20] VITALS (7 sets, daily range): BP systolic 103–140; BP diastolic 53–68
[2019-12-20] MEDS: methylPREDNISolone sod succ 125mg/2ml vial IV SCH ×4 (02:48→19:54)
--- NOTE | 2019-12-20 06:33 | NUR ---
Patient in room PCU 3016. I have received report from CITLALI Nina and had the opportunity to ask questions and assume patient care. Patient is currently sleeping, bipap in place, bed locked and low, call light in reach, no acute distress, will continue to monitor.
[2019-12-20 06:53] LABS: BASOPHILS % (AUTO) 0.3 % (0-1); EOSINOPHILS % (AUTO) 0.1 % (0-6); HEMATOCRIT 46.5 % (35.0-45.0); HEMOGLOBIN 15.2 g/dl (12.0-16.0); LYMPHOCYTES # (AUTO) 0.3 X10'3 (1.1-4.8); MEAN CORPUSCULAR HEMOGLOBIN 34.2 PG (27.0-31.0); MEAN CORPUSCULAR HGB CONC 32.8 g/dL (33.0-36.5); MEAN CORPUSCULAR VOLUME 104.3 FL (78-98); MEAN PLATELET VOLUME 8.8 FL (7.4-10.4); MONOCYTES % (AUTO) 1.4 % (2-12); NEUTROPHILS # (AUTO) 2.2 X10'3 (1.8-7.7); NEUTROPHILS % (AUTO) 85.2 % (42-75); PLATELET COUNT 89 X10'3 (140-440); RED BLOOD COUNT 4.46 X10'6 (4.20-5.60); RED CELL DISTRIBUTION WIDTH 14.1 % (11.5-14.5); WHITE BLOOD COUNT 2.6 X10'3 (4.5-11.0)
[2019-12-20 07:25] LABS: ALANINE AMINOTRANSFERASE 16 U/L (12-78); ALBUMIN/GLOBULIN RATIO 0.9 (1.1-1.5); ALKALINE PHOSPHATASE 60 IU/L (46-116); ANION GAP 4 (8-16); ASPARTATE AMINO TRANSFERASE 18 U/L (10-37); BILIRUBIN,TOTAL 0.6 MG/DL (0.1-1.0); BLOOD UREA NITROGEN 19 MG/DL (7-18); BUN/CREATININE RATIO 32.8 (6.6-38.0); CHLORIDE 104 MMOL/L (99-107); CREATININE 0.58 MG/DL (0.40-0.90); GLUCOSE 155 MG/DL (70-104); POTASSIUM 5.3 MMOL/L (3.5-5.1); SODIUM 143 MMOL/L (135-145); TOTAL PROTEIN 6.2 G/DL (6.4-8.2); eGFR > 90 ML/MIN
[2019-12-20] MEDS: ipratropium/albuterol 3ml nebule NEB SCH ×5 (07:57→22:38)
--- NOTE | 2019-12-20 07:57 | NUR ---
PAGER ID: [phone] MESSAGE: CITLALI Cobian, ext [phone], 2030R, Trudy, please address med rec
[2019-12-20] MEDS: K and/or MAG REPLACEMENT MC SCH ×2 (08:00→19:53)
[2019-12-20] MEDS: enoxaparin 40mg/0.4ml syringe SUBCUT SCH (08:00)
[2019-12-20 08:30] LABS: ABG BASE EXCESS 10.8 mmol/L (-2.0-3.0); ABG HCO3 39.9 mmol/L (22.0-26.0); ABG OXYGEN SATURATION 84.8 % (95-98); ABG PCO2 (T) 72.4 mmHg (35.0-45.0); ABG PH (T) 7.359 (7.350-7.450); ABG PO2 (T) 49.4 mmHg (83-108); ALLEN'S TEST POSITIVE; FCOHb 1.7 % (0.5-1.5); FLOW 3 L/min; FMetHb 0.2 % (0.3-1.12); FO2Hb 83.2 % (94-100); TOTAL HEMOGLOBIN 15.6 G/dl (12.0-16.0)
[2019-12-20 09:17] LABS: PLATELET ESTIMATE DECREASED; TOTAL CELLS COUNTED 100
[2019-12-20] MEDS ORDERED: sennosides 8.6mg tablet PO PRN (10:40)
[2019-12-20] MEDS: potassium Cl 20 mEq SR tablet PO SCH (10:40)
[2019-12-20] MEDS ORDERED: ondansetron 4mg rapidly disintigrating tab PO PRN (10:45)
[2019-12-20] MEDS: divalproex sod 125mg tablet.DR PO SCH ×2 (12:00→19:55)
[2019-12-20] MEDS: pantoprazole 40mg Tablet.DR PO SCH (12:01)
[2019-12-20] MEDS: benztropine 1mg tablet PO SCH (12:02)
[2019-12-20] MEDS: normal saline 1000ml 1,000 ML IV SCH (12:21)
--- NOTE | 2019-12-20 15:58 | NUR ---
PAGER ID: [phone] MESSAGE: CITLALI Cobian, ext [phone], patient has new 2+ pitting edema in BLE, can I order pBNP? do you want to stop fluids? She is also orthostatic+. Patient reports she is diabetic, can I order diabetic protocol? no Mg lab ordered
[2019-12-20] MEDS ORDERED: glucagon, human recombinant 1mg kit SUBCUT PRN (16:15)
[2019-12-20] MEDS ORDERED: dextrose ORAL solution 15 GM/59 ML bottle PO PRN ×2 (16:15)
[2019-12-20] MEDS ORDERED: furosemide 10 MG/1 ML 10ml inj IV ONE (16:15)
[2019-12-20] MEDS ORDERED: MESSAGE TO PHARMACY PO ONE (16:15)
[2019-12-20] MEDS ORDERED: dextrose 50%-water 50ml dispensing syringe IV PRN ×2 (16:15)
--- NOTE | 2019-12-20 18:17 | NUR ---
Problems reprioritized. Patient report given, questions answered & plan of care reviewed with CITLALI Munoz.
--- NOTE | 2019-12-20 18:20 | NUR ---
Patient in room PCU 3016. I have received report from Aranza GODWIN and had the opportunity to ask questions and assume patient care.
[2019-12-20] MEDS: metFORMIN 850mg tablet PO SCH (19:54)
[2019-12-20] MEDS: insulin glargine (Lantus) pen - multi-dose SQ SCH (21:23)
[2019-12-21] VITALS (7 sets, daily range): BP systolic 100–141; BP diastolic 54–72
[2019-12-21] MEDS: methylPREDNISolone sod succ 125mg/2ml vial IV SCH ×4 (02:34→20:31)
[2019-12-21] MEDS: normal saline 1000ml 1,000 ML IV SCH (02:35)
[2019-12-21 03:47] LABS: BASOPHILS % (AUTO) 0.3 % (0-1); EOSINOPHILS % (AUTO) 0.1 % (0-6); HEMOGLOBIN 14.7 g/dl (12.0-16.0); LYMPHOCYTES # (AUTO) 0.7 X10'3 (1.1-4.8); LYMPHOCYTES % (AUTO) 12.6 % (21-51); MEAN CORPUSCULAR HEMOGLOBIN 33.5 PG (27.0-31.0); MEAN CORPUSCULAR HGB CONC 33.3 g/dL (33.0-36.5); MEAN CORPUSCULAR VOLUME 100.4 FL (78-98); MEAN PLATELET VOLUME 8.7 FL (7.4-10.4); MONOCYTES # (AUTO) 0.5 X10'3 (0-0.9); MONOCYTES % (AUTO) 9.2 % (2-12); NEUTROPHILS # (AUTO) 4.1 X10'3 (1.8-7.7); NEUTROPHILS % (AUTO) 77.8 % (42-75); PLATELET COUNT 115 X10'3 (140-440); RED BLOOD COUNT 4.38 X10'6 (4.20-5.60); RED CELL DISTRIBUTION WIDTH 13.8 % (11.5-14.5); WHITE BLOOD COUNT 5.3 X10'3 (4.5-11.0)
[2019-12-21 03:56] LABS: ALANINE AMINOTRANSFERASE 18 U/L (12-78); ALBUMIN 3.1 G/DL (3.4-5.0); ALKALINE PHOSPHATASE 57 IU/L (46-116); ANION GAP 4 (8-16); ASPARTATE AMINO TRANSFERASE 18 U/L (10-37); BILIRUBIN,TOTAL 0.7 MG/DL (0.1-1.0); BLOOD UREA NITROGEN 23 MG/DL (7-18); BUN/CREATININE RATIO 26.7 (6.6-38.0); CALCIUM 9.1 MG/DL (8.5-10.1); CHLORIDE 102 MMOL/L (99-107); CREATININE 0.86 MG/DL (0.40-0.90); GLUCOSE 107 MG/DL (70-104); POTASSIUM 3.8 MMOL/L (3.5-5.1); SODIUM 142 MMOL/L (135-145); TOTAL CARBON DIOXIDE 36.5 MMOL/L (24-32); TOTAL PROTEIN 6.2 G/DL (6.4-8.2); eGFR 64 ML/MIN
--- NOTE | 2019-12-21 06:12 | NUR ---
Problems reprioritized. Patient report given, questions answered & plan of care reviewed with Genna GODWIN.
--- NOTE | 2019-12-21 06:18 | NUR ---
Problems reprioritized. Patient report given, questions answered & plan of care reviewed with Jared GODWIN.
--- NOTE | 2019-12-21 06:44 | NUR ---
Patient in room PCU 3016. I have received report from Alexander GODWIN and had the opportunity to ask questions and assume patient care.
[2019-12-21] MEDS: ipratropium/albuterol 3ml nebule NEB SCH ×5 (07:19→23:09)
[2019-12-21] MEDS ORDERED: donepezil 5mg tablet PO SCH (08:00)
[2019-12-21] MEDS: K and/or MAG REPLACEMENT MC SCH ×2 (08:00→20:28)
[2019-12-21] MEDS: benztropine 1mg tablet PO SCH (08:18)
[2019-12-21] MEDS: potassium Cl 20 mEq SR tablet PO SCH (08:19)
[2019-12-21] MEDS: metFORMIN 850mg tablet PO SCH ×2 (08:19→20:33)
[2019-12-21] MEDS: pantoprazole 40mg Tablet.DR PO SCH (08:19)
[2019-12-21] MEDS: enoxaparin 40mg/0.4ml syringe SUBCUT SCH (08:20)
[2019-12-21] MEDS: insulin Lispro (HumaLOG) vial - multi-dose SQ SCH ×3 (08:29→18:48)
[2019-12-21] MEDS: divalproex sod 125mg tablet.DR PO SCH ×2 (11:24→20:31)
--- NOTE | 2019-12-21 14:34 | NUR ---
Problems reprioritized. Patient report given, questions answered & plan of care reviewed with Jeri GODWIN.
--- NOTE | 2019-12-21 16:07 | NUR ---
Paged Dr. Rangel. Trudy, Payton. [phone]. FYI patient came back MRSA positive in the nares. Jared [phone]
[2019-12-21] MEDS: CefTRIAXone/D5W-Rocephin 1gm 50 ML IV SCH (16:21)
--- NOTE | 2019-12-21 18:15 | NUR ---
Patient in room PCU 3016. I have received report from Jared GODWIN and had the opportunity to ask questions and assume patient care.
--- NOTE | 2019-12-21 18:22 | NUR ---
Problems reprioritized. Patient report given, questions answered & plan of care reviewed with Alexander GODWIN.
[2019-12-21] MEDS: donepezil 5mg tablet PO SCH (20:31)
[2019-12-21] MEDS: insulin glargine (Lantus) pen - multi-dose SQ SCH (21:02)
[2019-12-22] MEDS: methylPREDNISolone sod succ 125mg/2ml vial IV SCH ×4 (01:22→19:00)
[2019-12-22 02:00] VITALS: BP 124/65
[2019-12-22 06:00] VITALS: BP 130/61
[2019-12-22 06:23] LABS: BASOPHILS % (AUTO) 0.1 % (0-1); EOSINOPHILS % (AUTO) 0.1 % (0-6); HEMATOCRIT 46.4 % (35.0-45.0); HEMOGLOBIN 15.3 g/dl (12.0-16.0); LYMPHOCYTES # (AUTO) 0.3 X10'3 (1.1-4.8); MEAN CORPUSCULAR HEMOGLOBIN 33.6 PG (27.0-31.0); MEAN CORPUSCULAR HGB CONC 32.9 g/dL (33.0-36.5); MEAN CORPUSCULAR VOLUME 101.9 FL (78-98); MEAN PLATELET VOLUME 9.1 FL (7.4-10.4); MONOCYTES # (AUTO) 0.2 X10'3 (0-0.9); MONOCYTES % (AUTO) 4.8 % (2-12); NEUTROPHILS # (AUTO) 4.2 X10'3 (1.8-7.7); PLATELET COUNT 106 X10'3 (140-440); RED BLOOD COUNT 4.55 X10'6 (4.20-5.60); RED CELL DISTRIBUTION WIDTH 13.8 % (11.5-14.5); WHITE BLOOD COUNT 4.8 X10'3 (4.5-11.0)
--- NOTE | 2019-12-22 06:30 | NUR ---
Patient in room PCU 3016. I have received report from CITLALI VIDAL and had the opportunity to ask questions and assume patient care.
--- NOTE | 2019-12-22 06:41 | NUR ---
Problems reprioritized. Patient report given, questions answered & plan of care reviewed with Claus RN.
[2019-12-22 06:49] LABS: ALANINE AMINOTRANSFERASE 24 U/L (12-78); ALKALINE PHOSPHATASE 54 IU/L (46-116); ANION GAP 8 (8-16); ASPARTATE AMINO TRANSFERASE 28 U/L (10-37); BILIRUBIN,TOTAL 0.5 MG/DL (0.1-1.0); BLOOD UREA NITROGEN 25 MG/DL (7-18); BUN/CREATININE RATIO 35.2 (6.6-38.0); CALCIUM 8.9 MG/DL (8.5-10.1); CHLORIDE 103 MMOL/L (99-107); CREATININE 0.71 MG/DL (0.40-0.90); GLUCOSE 115 MG/DL (70-104); POTASSIUM 3.6 MMOL/L (3.5-5.1); SODIUM 142 MMOL/L (135-145); TOTAL CARBON DIOXIDE 31.1 MMOL/L (24-32); eGFR 80 ML/MIN
[2019-12-22] MEDS: ipratropium/albuterol 3ml nebule NEB SCH ×5 (07:23→23:00)
[2019-12-22] MEDS: benztropine 1mg tablet PO SCH (08:00)
[2019-12-22] MEDS: K and/or MAG REPLACEMENT MC SCH ×2 (08:00→19:00)
[2019-12-22] MEDS: enoxaparin 40mg/0.4ml syringe SUBCUT SCH (08:00)
[2019-12-22] MEDS: CefTRIAXone/D5W-Rocephin 1gm 50 ML IV SCH (08:00)
[2019-12-22] MEDS: divalproex sod 125mg tablet.DR PO SCH ×2 (08:00→19:01)
[2019-12-22] MEDS: metFORMIN 850mg tablet PO SCH ×2 (08:00→19:01)
[2019-12-22] MEDS: potassium Cl 20 mEq SR tablet PO SCH (08:00)
--- NOTE | 2019-12-22 08:21 | NUR ---
call to jose elias freire to send prolixin am dose,re not available.
[2019-12-22] MEDS: pantoprazole 40mg Tablet.DR PO SCH (08:29)
[2019-12-22] MEDS: insulin Lispro (HumaLOG) vial - multi-dose SQ SCH ×2 (08:42→14:06)
--- NOTE | 2019-12-22 09:00 | NUR ---
PAGER ID: [phone] MESSAGE: DR. JAMES, 4002L/NATASHA, SHE REFUSED ALL MEDCATIONS EXCEPT SOLUMEDROL AND PROTONIX. SHE SAYS SHE WANTS TO BE DNR WITH COMFORT CARE. I BELIEVE SON WAN IS POA. RANJAN [phone].TY
--- NOTE | 2019-12-22 10:41 | NUR ---
PAGED RT: [id number] ,KEEPS REQUESTING RESP. TREATMENT. SHE MAY NEED SOME INFORMATION REGARDING HER RT ORDERS? CONFUSED SOMEWHAT. RANJAN [id number]. TY.
[2019-12-22 11:00] VITALS: BP 131/78
--- NOTE | 2019-12-22 14:08 | NUR ---
PAGER ID: [phone] MESSAGE: CHANI SEE 3016A/NATASHA REFUSED 1400 SOLUMEDROL DOSE. RANJAN [phone]. TY
[2019-12-22 15:00] VITALS: BP 128/70
--- NOTE | 2019-12-22 18:32 | NUR ---
Problems reprioritized. Patient report given, questions answered & plan of care reviewed with CITLALI MABRY.
--- NOTE | 2019-12-22 18:35 | NUR ---
Patient in room PCU 3016. I have received report from Claus GODWIN and had the opportunity to ask questions and assume patient care.
[2019-12-22 19:00] VITALS: BP 120/60
[2019-12-22] MEDS: lactobacillus rhamnosus 10,000 MMU CELLS/CAPSULE PO SCH (19:01)
--- NOTE | 2019-12-22 20:00 | NUR ---
Patient refused all medications and insulin. Educated on the importance of taking medications as prescribed, patient continues to refuse.
[2019-12-22] MEDS: donepezil 5mg tablet PO SCH (21:00)
[2019-12-22] MEDS: insulin glargine (Lantus) pen - multi-dose SQ SCH (21:00)
[2019-12-22 22:00] VITALS: BP 130/54
[2019-12-23 02:00] VITALS: BP 149/64
[2019-12-23] MEDS: methylPREDNISolone sod succ 125mg/2ml vial IV SCH ×4 (02:00→20:29)
[2019-12-23 06:00] VITALS: BP 140/65
[2019-12-23 06:18] LABS: BASOPHILS % (AUTO) 0.3 % (0-1); EOSINOPHILS # (AUTO) 0.1 X10'3 (0-0.9); HEMATOCRIT 47.1 % (35.0-45.0); HEMOGLOBIN 15.5 g/dl (12.0-16.0); LYMPHOCYTES # (AUTO) 0.9 X10'3 (1.1-4.8); LYMPHOCYTES % (AUTO) 16.5 % (21-51); MEAN CORPUSCULAR HEMOGLOBIN 33.6 PG (27.0-31.0); MEAN CORPUSCULAR VOLUME 101.7 FL (78-98); MEAN PLATELET VOLUME 8.2 FL (7.4-10.4); MONOCYTES # (AUTO) 0.7 X10'3 (0-0.9); MONOCYTES % (AUTO) 11.8 % (2-12); NEUTROPHILS % (AUTO) 70.4 % (42-75); PLATELET COUNT 100 X10'3 (140-440); RED BLOOD COUNT 4.63 X10'6 (4.20-5.60); WHITE BLOOD COUNT 5.7 X10'3 (4.5-11.0)
--- NOTE | 2019-12-23 06:24 | NUR ---
Problems reprioritized. Patient report given, questions answered & plan of care reviewed with RANJAN RN.
--- NOTE | 2019-12-23 06:31 | NUR ---
Patient in room PCU 3016. I have received report from CITLALI MABRY and had the opportunity to ask questions and assume patient care.
[2019-12-23 06:35] LABS: ALANINE AMINOTRANSFERASE 29 U/L (12-78); ALBUMIN/GLOBULIN RATIO 1.1 (1.1-1.5); ALKALINE PHOSPHATASE 52 IU/L (46-116); ANION GAP 3 (8-16); ASPARTATE AMINO TRANSFERASE 26 U/L (10-37); BILIRUBIN,TOTAL 0.5 MG/DL (0.1-1.0); BLOOD UREA NITROGEN 20 MG/DL (7-18); BUN/CREATININE RATIO 31.3 (6.6-38.0); CALCIUM 8.8 MG/DL (8.5-10.1); CHLORIDE 106 MMOL/L (99-107); CREATININE 0.64 MG/DL (0.40-0.90); GLUCOSE 86 MG/DL (70-104); POTASSIUM 3.2 MMOL/L (3.5-5.1); SODIUM 143 MMOL/L (135-145); TOTAL CARBON DIOXIDE 33.8 MMOL/L (24-32); TOTAL PROTEIN 5.8 G/DL (6.4-8.2); eGFR 90 ML/MIN
[2019-12-23] MEDS: pantoprazole 40mg Tablet.DR PO SCH (07:30)
[2019-12-23] MEDS: potassium Cl 20 mEq SR tablet PO SCH (08:00)
[2019-12-23] MEDS: metFORMIN 850mg tablet PO SCH ×2 (08:00→20:28)
[2019-12-23] MEDS: lactobacillus rhamnosus 10,000 MMU CELLS/CAPSULE PO SCH ×2 (08:00→20:29)
[2019-12-23] MEDS: K and/or MAG REPLACEMENT MC SCH ×2 (08:00→20:00)
[2019-12-23] MEDS: divalproex sod 125mg tablet.DR PO SCH ×2 (08:00→20:29)
[2019-12-23] MEDS: CefTRIAXone/D5W-Rocephin 1gm 50 ML IV SCH (08:00)
[2019-12-23] MEDS: benztropine 1mg tablet PO SCH (08:00)
[2019-12-23] MEDS: enoxaparin 40mg/0.4ml syringe SUBCUT SCH (08:00)
[2019-12-23] MEDS: ipratropium/albuterol 3ml nebule NEB SCH ×5 (08:09→23:30)
--- NOTE | 2019-12-23 08:50 | NUR ---
PAGER ID: [phone] MESSAGE: DR. JAMES, 3040L/Dale KAUR+ 3.2, ACCUCHECK 71. REFUSED ALL MEDICATION, BREAKFAST. WANTED TO KEEP BIPAP ON, IS AT 35%FI02. ALL SHE SAYS SHE WANTS IS HER RESP. TREATMENTS. CAN WE STOP THE ACCUCHECKS? RANJAN [phone]. TY.
[2019-12-23 11:00] VITALS: BP 120/58
--- NOTE | 2019-12-23 11:17 | NUR ---
patient states she prefers nasal cannula in her mouth Addendum: 12/23/19 at 1118 by Colin Lowry RT Amended: Links added.
[2019-12-23 15:00] VITALS: BP 120/64
[2019-12-23 18:00] VITALS: BP 120/50
--- NOTE | 2019-12-23 18:14 | NUR ---
Problems reprioritized. Patient report given, questions answered & plan of care reviewed with CITLALI PRICE.
--- NOTE | 2019-12-23 18:16 | NUR ---
Patient in room PCU 3016. I have received report from Claus GODWIN and had the opportunity to ask questions and assume patient care.
[2019-12-23] MEDS: donepezil 5mg tablet PO SCH (20:29)
[2019-12-23] MEDS: insulin glargine (Lantus) pen - multi-dose SQ SCH (21:00)
[2019-12-23 22:00] VITALS: BP 101/55
--- NOTE | 2019-12-23 22:06 | NUR ---
Patient was complaint with taking her scheduled medications tonight as she had reportedly been refusing the majority of her meds throughout the day. She did not get insulin however since she has not received it in a couple days and had a few low readings today and did take her PO Metformin tonight so will wait for her to re-meet the protocol.
[2019-12-24] VITALS (7 sets, daily range): BP systolic 95–126; BP diastolic 46–70
[2019-12-24] MEDS: methylPREDNISolone sod succ 125mg/2ml vial IV SCH ×2 (01:47→08:54)
[2019-12-24 06:13] LABS: BASOPHILS % (AUTO) 0.2 % (0-1); EOSINOPHILS % (AUTO) 0.1 % (0-6); HEMOGLOBIN 15.9 g/dl (12.0-16.0); LYMPHOCYTES # (AUTO) 0.2 X10'3 (1.1-4.8); LYMPHOCYTES % (AUTO) 6.1 % (21-51); MEAN CORPUSCULAR HEMOGLOBIN 33.4 PG (27.0-31.0); MEAN CORPUSCULAR HGB CONC 32.5 g/dL (33.0-36.5); MEAN CORPUSCULAR VOLUME 102.9 FL (78-98); MEAN PLATELET VOLUME 8.6 FL (7.4-10.4); MONOCYTES # (AUTO) 0.1 X10'3 (0-0.9); MONOCYTES % (AUTO) 3.2 % (2-12); NEUTROPHILS # (AUTO) 3.7 X10'3 (1.8-7.7); NEUTROPHILS % (AUTO) 90.4 % (42-75); PLATELET COUNT 93 X10'3 (140-440); RED BLOOD COUNT 4.77 X10'6 (4.20-5.60); RED CELL DISTRIBUTION WIDTH 13.8 % (11.5-14.5); WHITE BLOOD COUNT 4.1 X10'3 (4.5-11.0)
[2019-12-24 06:25] LABS: ALANINE AMINOTRANSFERASE 57 U/L (12-78); ALKALINE PHOSPHATASE 52 IU/L (46-116); ANION GAP 3 (8-16); ASPARTATE AMINO TRANSFERASE 30 U/L (10-37); BILIRUBIN,TOTAL 0.5 MG/DL (0.1-1.0); BLOOD UREA NITROGEN 23 MG/DL (7-18); BUN/CREATININE RATIO 34.8 (6.6-38.0); CALCIUM 8.8 MG/DL (8.5-10.1); CHLORIDE 105 MMOL/L (99-107); CREATININE 0.66 MG/DL (0.40-0.90); GLUCOSE 151 MG/DL (70-104); POTASSIUM 4.1 MMOL/L (3.5-5.1); SODIUM 142 MMOL/L (135-145); TOTAL CARBON DIOXIDE 33.6 MMOL/L (24-32); TOTAL PROTEIN 5.9 G/DL (6.4-8.2); eGFR 87 ML/MIN
--- NOTE | 2019-12-24 06:39 | NUR ---
Patient in room PCU 3016. I have received report from Bess GODWIN and had the opportunity to ask questions and assume patient care.
--- NOTE | 2019-12-24 06:47 | NUR ---
Problems reprioritized. Patient report given, questions answered & plan of care reviewed with Jared GODWIN.
[2019-12-24] MEDS: ipratropium/albuterol 3ml nebule NEB SCH ×2 (06:55→10:46)
[2019-12-24] MEDS: enoxaparin 40mg/0.4ml syringe SUBCUT SCH (08:00)
[2019-12-24] MEDS: K and/or MAG REPLACEMENT MC SCH (08:00)
[2019-12-24] MEDS: CefTRIAXone/D5W-Rocephin 1gm 50 ML IV SCH (08:52)
[2019-12-24] MEDS: benztropine 1mg tablet PO SCH (08:52)
[2019-12-24] MEDS: pantoprazole 40mg Tablet.DR PO SCH (08:54)
[2019-12-24] MEDS: metFORMIN 850mg tablet PO SCH (08:55)
[2019-12-24] MEDS: lactobacillus rhamnosus 10,000 MMU CELLS/CAPSULE PO SCH (08:55)
[2019-12-24] MEDS: potassium Cl 20 mEq SR tablet PO SCH (08:55)
[2019-12-24] MEDS: divalproex sod 125mg tablet.DR PO SCH (08:55)
--- NOTE | 2019-12-24 11:57 | NUR ---
Initial: Pt admit w/ COPD exacerbation, encephalopathy r/t hypercapnia, bipolar disorder, and hx dementia refused most meds yesterday per MD note. Pending family meeting regarding potential hospice per MD note. Placed on mechanical soft/grind meats/carb controlled/heart healthy diet; has no teeth per EMR. PO increasing to 50-75% recent meals from initial 50% though fluctuates. Decent given ALOC and age. 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 MCV 102.9; RD d/w RN regarding B12 supplementation if MD agreeable given colostomy hx and MCV elevation. Will continue to monitor for additional protein needs pending further PO hx as well as for changes in code status. Rec: 1. advance diet per MD to mechanical soft/grind meats; encourage PO 2. monitor for additional protein needs 3. routine bowel care 4. weekly wts Addendum: 12/24/19 at [address] Amended: Links added.
[2019-12-24] MEDS ORDERED: morphine 10mg/0.5ml (conc. morphine) oral syringe PO PRN (14:10)
[2019-12-24] MEDS ORDERED: morphine 10mg/ml inj. IV PRN (14:10)
[2019-12-24] MEDS ORDERED: LORazepam 2 mg/ml vial IV PRN (14:10)
--- NOTE | 2019-12-24 18:19 | NUR ---
Problems reprioritized. Patient report given, questions answered & plan of care reviewed with Bess GODWIN.
--- NOTE | 2019-12-24 18:25 | NUR ---
Patient in room PCU 3016. I have received report from Jared GODWIN and had the opportunity to ask questions and assume patient care.
--- NOTE | 2019-12-25 06:12 | NUR ---
Problems reprioritized. Patient report given, questions answered & plan of care reviewed with Jared GODWIN.
--- NOTE | 2019-12-25 06:33 | NUR ---
Patient in room PCU 3016. I have received report from Bess GODWIN and had the opportunity to ask questions and assume patient care.
[2019-12-25 07:00] VITALS: BP 137/91
[2019-12-25 08:00] VITALS: BP 137/91
--- NOTE | 2019-12-25 08:44 | NUR ---
Paged Dr. Rangel. Payton Yates. [phone]. FYI patient may have aspirated while drinking water. Patient has reduced swallow and is struggling to clear secretions. Patient is on Comfort Care. VS 137/91, HR 99, RR 24, O2 83 on 3L. Please advise. Jared [phone]
[2019-12-25 08:53] VITALS: BP 126/68
--- NOTE | 2019-12-25 11:00 | NUR ---
Report called to Roshni GODWIN at [facility].
--- NOTE | 2019-12-25 12:26 | NUR ---
Patient safe to be transferred to [facility], belongings sent with patient, roadway technician notified, picked up by hunter andinoed to lobby with 2L NC.
== END 2019-12-25 11:42 | DRG 189 ==
LOC: ER 15:08 → ED HOLD 21:31 → PCU 3S 22:50
PROVIDERS: ADMIT Family Medicine; ATTEND Family Medicine
PROC: 5A09357 Assistance with Respiratory Ventilation, Less than 24 Consecutive Hours, Continuous Positive Airway Pressure (ICD-10-PCS; principal; 2019-12-19)
PROC: 5A09357 Assistance with Respiratory Ventilation, Less than 24 Consecutive Hours, Continuous Positive Airway Pressure (ICD-10-PCS; 2019-12-20)
PROC: 5A09357 Assistance with Respiratory Ventilation, Less than 24 Consecutive Hours, Continuous Positive Airway Pressure (ICD-10-PCS; 2019-12-21)
PROC: 5A09357 Assistance with Respiratory Ventilation, Less than 24 Consecutive Hours, Continuous Positive Airway Pressure (ICD-10-PCS; 2019-12-23)
PROC: 5A09357 Assistance with Respiratory Ventilation, Less than 24 Consecutive Hours, Continuous Positive Airway Pressure (ICD-10-PCS; 2019-12-24)
DX: J96.01 Acute respiratory failure with hypoxia (principal); G93.49 Other encephalopathy; E87.2 Acidosis; J96.02 Acute respiratory failure with hypercapnia; Z66 Do not resuscitate; E11.9 Type 2 diabetes mellitus without complications; E78.00 Pure hypercholesterolemia, unspecified; E86.0 Dehydration; F03.90 Unspecified dementia, unspecified severity, without behavioral disturbance, psychotic disturbance, mood disturbance, and anxiety; F31.9 Bipolar disorder, unspecified; I10 Essential (primary) hypertension; J43.9 Emphysema, unspecified; G89.29 Other chronic pain; K57.90 Diverticulosis of intestine, part unspecified, without perforation or abscess without bleeding; M54.9 Dorsalgia, unspecified; I25.10 Atherosclerotic heart disease of native coronary artery without angina pectoris; Z85.118 Personal history of other malignant neoplasm of bronchus and lung; Z90.49 Acquired absence of other specified parts of digestive tract; Z90.721 Acquired absence of ovaries, unilateral; Z93.3 Colostomy status; Z95.1 Presence of aortocoronary bypass graft; Z95.2 Presence of prosthetic heart valve; Z99.81 Dependence on supplemental oxygen; E87.5 Hyperkalemia
CPT/HCPCS: 36415; 36600; 71046; 80053; 82803; 82948; 83036; 83605; 84132; 85018; 85025; 87040; 87081; 93005; 94640; 94660; 94760; 97110; 97116; 97162; 97530; 99291; G0378; J0696; J1650; J1815; J1940; J2060; J2270; J2930; J7030